=== PATIENT | male | born 1985 | race Caucasian/White ===

== ENCOUNTER 2019-04-24 06:44 | Inpatient (IN) | payer MEDICAID ==
[~2019-04-24] VITALS: Ht 177.8 cm; Wt 83.0 kg
[2019-04-24] MEDS ORDERED: methylPREDNISolone SOD SUCC 125 MG/2 ML IV ONE (07:00)
[2019-04-24] MEDS ORDERED: SODIUM CHLORIDE FLUSH 10ML SYR IVF ONE (07:00)
--- NOTE | 2019-04-24 07:04 | NUR ---
Assumed c/o pt from LISETTE Manuel. Pt to ER this morning for increasing SOB x 2 days. Hx COPD, recent ICU admission to [facility] for resp. failure. Arrives w/ RR 35, mildly diaphoretic, sinus tachycardia on monitor, 9/10 chest tightness. Pt placed on cardiac, NIBP & continuous SPO2 monitors. RA sat trial: 91%. EKG performed & shown to ER MD. ARNOL IP from EMS. RT en route for neb tx. Pt aware that he is likely IP admit.
[2019-04-24] MEDS ORDERED: ALBU90AE2 INH (07:07)
[2019-04-24] MEDS ORDERED: methylPREDNISolone SOD SUCC 125 MG/2 ML ONE (07:11)
[2019-04-24] MEDS ORDERED: ALBUTEROL/IPRATROPIUM 2.5MG/0.5MG, 3 ML ONE ×2 (07:13→09:48)
[2019-04-24] MEDS: ALBUTEROL/IPRATROPIUM 2.5MG/0.5MG, 3 ML NPPB SCH ×5 (07:16→23:30)
--- NOTE | 2019-04-24 07:16 | NUR ---
BC x2 being drawn. Mayo tx IP.
--- NOTE | 2019-04-24 07:31 | NUR ---
Pt WOB not decreased after neb tx. RR 33. BiPap intitiated by RT. Pt tolerating well.
[2019-04-24 07:47] LABS: BASOPHILS # (AUTO) 0.03 x10^3/uL (0-0.1); BASOPHILS % (AUTO) 0 % (0-1); EOSINOPHILS # (AUTO) 0.07 x10^3/uL (0-0.4); EOSINOPHILS % (AUTO) 1 % (1-7); LYMPHOCYTES # (AUTO) 1.78 x10^3/uL (1-3.4); LYMPHOCYTES % (AUTO) 12 % (22-44); MD NO; MEAN CORPUSCULAR HEMOGLOBIN 31.9 pg (27.5-34.5); MEAN CORPUSCULAR HGB CONC 33.8 g/dL (33.2-36.2); MEAN CORPUSCULAR VOLUME 94.4 fL (81-97); MEAN PLATELET VOLUME 7.6 fL (7.4-10.4); MONOCYTES # (AUTO) 0.92 x10^3/uL (0.2-0.8); MONOCYTES % (AUTO) 6 % (2-9); NEUTROPHILS # (AUTO) 12.04 x10^3/uL (1.8-6.8); NEUTROPHILS % (AUTO) 81 % (42-75); PLATELET COUNT 256 x10^3/uL (130-400); RED BLOOD COUNT 5.27 x10^6/uL (4.38-5.82); RED CELL DISTRIBUTION WIDTH 15.7 % (9.4-14.8)
--- NOTE | 2019-04-24 07:49 | NUR ---
Tolerating Bipap well, HR decreased. RR remains elevated. Falls asleep frequently. Call light within reach.
[2019-04-24 07:57] LABS: ALBUMIN 3.4 g/dL (3.4-5.0); ANION GAP 3 mmol/L (5-15); CALCIUM 8.6 mg/dL (8.5-10.1); CHLORIDE 107 mmol/L (98-107); PROTHROMBIN TIME 10.6 Seconds (9.6-11.5)
[2019-04-24] MEDS ORDERED: CEFTRIAXONE PMX 1GM/50ML 50 ML IVPB ONE (08:00)
[2019-04-24] MEDS ORDERED: AZITHROMYCIN 500 MG in SODIUM CHLORIDE 0.9% 250 ML IVPB ONE (08:00)
[2019-04-24 08:12] LABS: TROPONIN I 0.516 ng/mL (0.000-0.045)
--- NOTE | 2019-04-24 08:12 | NUR ---
Pt removed Bipap to speak with abstract clerk. Unable to replace w/out machine alarming. Placed on oxymask @ 6L to maintain SPO2. Isabel RT called & will come to reset. Critical trop called from lab. Provider informed.
[2019-04-24] MEDS ORDERED: CEFTRIAXONE PMX 1GM/50ML 50 ML ONE (08:15)
--- NOTE | 2019-04-24 08:24 | NUR ---
Back on bipap. 1 of 2 IV abx hung.
--- NOTE | 2019-04-24 08:46 | NUR ---
2nd IV abx gabe.
--- NOTE | 2019-04-24 09:00 | NUR ---
LATE ENTRY D/T PATIENT CARE: REPORT RECEIVED AT BEDSIDE FROM LISETTE MOTA. PT IS A&O, RESPS EVEN, MILDLY LABORED. PT IS ON BIPAP, PLACED BY RT. RESPIRATORY RATE RANGING BETWEEN 22-36. SPO2 MAINTAINED >95%. PT REPORTS 7/10 BILATERAL CHEST PAIN, AND DIFFUSE ABDOMINAL PAIN. MD SMITH INFORMED. AWARE OF ELEVATED TROPONIN. IV ABX INFUSING AT THIS TIME. PT IS SINUS TACH, RATE 110-120 WITH NO ECTOPY. BP STABLE. PT ABLE TO SPEAK 5-6 WORD SENTENCES WITHOUT TAKING A BREATH. PT TO HAVE CTA TO RULE OUT PE.
--- NOTE | 2019-04-24 09:05 | NUR ---
LATE ENTRY D/T PATIENT CARE: PER MD SMITH, ELEVATED TROPONIN LIKELY SECONDARY TO RESP DISTRESS, NOT CARDIAC IN ORIGIN.
--- NOTE | 2019-04-24 09:10 | NUR ---
SECOND PIV STARTED. CT CALLED TO NOTIFY PT IS READY FOR CT. RT CALLED, INSTRUCTED RN TO PUT PT ON NASAL CANNULA AT 4L/MIN FOR CT SCAN. CT STATES SCANNER WILL BE READY IN 5 MIN.
--- NOTE | 2019-04-24 09:20 | NUR ---
PT TAKEN TO CT WITH THIS RN AND TECH WITH MONITOR, OXYGEN VIA OXYMASK AT 4L/MIN, PT TOLERATING WELL WITH SPO2 98-99%. RESPIRATORY RATE REMAINS 22-36, MILDLY LABORED.
--- NOTE | 2019-04-24 09:40 | NUR ---
PT BACK FROM CT WITH RN AND TECH, NO CHANGE IN RESP STATUS. SPO2 95% ON 4L/MIN VIA OXYMASK UPON RETURN. RT CALLED TO REAPPLY BIPAP.
--- NOTE | 2019-04-24 10:00 | NUR ---
RT AT BEDSIDE, PT REATTACHED TO BIPAP. BREATHING TX IN PROGRESS VIA BIPAP. REPEAT EKG TAKEN BY EDT AND REVIEWED BY TEAGAN SMITH. AWAITING ICU BED ASSIGNMENT AT THIS TIME.
--- NOTE | 2019-04-24 10:15 | NUR ---
PT SLEEPING, RESPS EVEN, MILDLY LABORED. BIPAP IN PLACE, PT TOLERATING WITH SPO2 >95%.
[2019-04-24] MEDS ORDERED: SODIUM CHLORIDE FLUSH 10ML SYR IVF PRN (10:30)
--- NOTE | 2019-04-24 10:45 | NUR ---
SEPSIS FLOW SHEET FILLED OUT, DIAGNOSTIC FINDINGS DISCUSSED WITH LYNDA SMITH, PER MD, PT IS NOT IN SEPTIC SHOCK AND DOES NOT REQUIRE WEIGHT BASED FLUID RESUSCITATION.
--- NOTE | 2019-04-24 11:12 | NUR ---
terrazzo installer prince at bedside to evaluate pt. pt a&o, resps even and unlabored. tolerating bipap well. per terrazzo installer, bipap to remain on for a few more hours before re-evaluation and potentially transitioning to nasal cannula.
[2019-04-24] MEDS ORDERED: ENALAPRILAT 1.25 MG/ML, 2ML IVPush PRN (11:30)
[2019-04-24] MEDS ORDERED: POLYETHYLENE GLYCOL 17 GM PACKET PO PRN (11:30)
[2019-04-24] MEDS ORDERED: LABETALOL 5MG/ML, 20ML IVPush PRN (11:30)
[2019-04-24] MEDS ORDERED: ACETAMINOPHEN 325 MG TABLET PO PRN (11:30)
[2019-04-24] MEDS ORDERED: BISACODYL 10 MG SUPP PR PRN (11:30)
[2019-04-24] MEDS ORDERED: ONDANSETRON 2MG/ML, 2ML IVPush PRN (11:30)
--- NOTE | 2019-04-24 11:39 | NUR ---
ICU BED STILL UNAVAILABLE. HOUSEKEEPING PAGED TO BRING HOSPITAL BED TO REPLACE KRISTOPHERRMARIEL. REGULAR DIET TRAY ORDERED.
--- NOTE | 2019-04-24 12:08 | NUR ---
LUNCH RN: PT MOVED TO HOSPITAL BED, TOLERATED WELL. PT REQUESTING DIET TRAY. WILL DELIVER. PT ALSO WANTING TO KNOW HOW LONG BIPAP IS TO BE WORN, UPDATED. TOLD TO CALL DR. LONGO
[2019-04-24] MEDS ORDERED: methylPREDNISolone SOD SUCC 40 MG/ML IV SCH (12:30)
[2019-04-24] MEDS ORDERED: NICOTINE 21 MG/24 HR PATCH.TD24 TD ONE (12:30)
--- NOTE | 2019-04-24 12:31 | NUR ---
REPORT CALLED TO RECEIVING LISETTE CHAMPAGNE. PT TO BE TRANSPORTED TO CCU SHORTLY.
--- NOTE | 2019-04-24 12:56 | NUR ---
PT VOIDED APPROX 800ML CONCENTRATED URINE. LUNCH TRAY CONSUMED 100%. PT TOLERATING NASAL CANNULA AT 3L/MIN , SPO2 98% PRIOR TO TRANSFER. PT TRANSPORTED TO ROOM 551-2 BY THIS RN AND EDT. RT NOTIFIED OF TRANSPORT, RN INSTRUCTED TO TRANSPORT PT WITH OXYGEN VIA NC, TO RESUME BIPAP PER RT IN CCU. RT AND RECEIVING LISETTE CHAMAPGNE AT BEDSIDE UPON PT ARRIVAL TO CCU. PT A&O, RESPS EVEN AND UNLABORED, NADN AT TRANSPORT.
[2019-04-24] MEDS: ENOXAPARIN 40 MG/0.4 ML SQ SCH (13:05)
[2019-04-24] MEDS ORDERED: ALBUTEROL/IPRATROPIUM 2.5MG/0.5MG, 3 ML NPPB PRN (14:00)
[2019-04-24] MEDS: methylPREDNISolone SOD SUCC 40 MG/ML IV SCH ×2 (15:08→23:35)
[2019-04-24] MEDS: FAMOTIDINE 20 MG TABLET PO SCH (20:14)
[2019-04-25] MEDS: ALBUTEROL/IPRATROPIUM 2.5MG/0.5MG, 3 ML NPPB SCH ×5 (02:55→20:15)
[2019-04-25 04:39] LABS: BASOPHILS # (AUTO) 0.01 x10^3/uL (0-0.1); BASOPHILS % (AUTO) 0 % (0-1); EOSINOPHILS # (AUTO) 0.01 x10^3/uL (0-0.4); EOSINOPHILS % (AUTO) 0 % (1-7); LYMPHOCYTES # (AUTO) 0.67 x10^3/uL (1-3.4); LYMPHOCYTES % (AUTO) 5 % (22-44); MD NO; MEAN CORPUSCULAR HEMOGLOBIN 31.6 pg (27.5-34.5); MEAN CORPUSCULAR HGB CONC 33.6 g/dL (33.2-36.2); MEAN CORPUSCULAR VOLUME 94.2 fL (81-97); MEAN PLATELET VOLUME 8.1 fL (7.4-10.4); MONOCYTES # (AUTO) 0.33 x10^3/uL (0.2-0.8); MONOCYTES % (AUTO) 2 % (2-9); NEUTROPHILS % (AUTO) 93 % (42-75); PLATELET COUNT 204 x10^3/uL (130-400); RED BLOOD COUNT 4.77 x10^6/uL (4.38-5.82); RED CELL DISTRIBUTION WIDTH 15.3 % (9.4-14.8)
[2019-04-25 04:49] LABS: ANION GAP 5 mmol/L (5-15); CALCIUM 8.8 mg/dL (8.5-10.1); CHLORIDE 100 mmol/L (98-107)
[2019-04-25 04:51] LABS: ALANINE AMINOTRANSFERASE 48 U/L (12-78); ALKALINE PHOSPHATASE 46 U/L (45-117); BILIRUBIN,TOTAL 0.5 mg/dL (0.2-1.0); CREATININE 0.92 mg/dL (0.7-1.3); TOTAL PROTEIN 6.1 g/dL (6.4-8.2)
[2019-04-25] MEDS: methylPREDNISolone SOD SUCC 40 MG/ML IV SCH ×2 (06:10→16:42)
[2019-04-25] MEDS: SENNA/DOCUSATE TABLET PO SCH (07:34)
[2019-04-25] MEDS: FAMOTIDINE 20 MG TABLET PO SCH ×2 (07:34→20:17)
[2019-04-25] MEDS: CEFTRIAXONE PMX 1GM/50ML 50 ML IV SCH (07:53)
[2019-04-25 08:30] VITALS: BP 128/82
[2019-04-25] MEDS: AZITHROMYCIN 500 MG in SODIUM CHLORIDE 0.9% 250 ML IV SCH (08:48)
[2019-04-25] MEDS: ENOXAPARIN 40 MG/0.4 ML SQ SCH (10:27)
[2019-04-25] MEDS: NICOTINE 21 MG/24 HR PATCH.TD24 TD SCH (10:27)
[2019-04-25] MEDS ORDERED: ZOLPIDEM 10MG TABLET PO PRN (10:30)
[2019-04-25 12:23] VITALS: BP 144/84
[2019-04-25 16:45] VITALS: BP 139/86
[2019-04-25 20:18] VITALS: BP 130/71
[2019-04-25 22:56] VITALS: BP 127/80
[2019-04-26] MEDS: methylPREDNISolone SOD SUCC 40 MG/ML IV SCH ×3 (01:02→16:43)
[2019-04-26 01:20] VITALS: BP 147/75
[2019-04-26] MEDS: ALBUTEROL/IPRATROPIUM 2.5MG/0.5MG, 3 ML NPPB SCH ×7 (01:41→23:00)
[2019-04-26] MEDS: CEFTRIAXONE PMX 1GM/50ML 50 ML IV SCH (08:25)
[2019-04-26] MEDS: FAMOTIDINE 20 MG TABLET PO SCH ×2 (09:19→22:19)
[2019-04-26] MEDS: SENNA/DOCUSATE TABLET PO SCH (09:19)
[2019-04-26] MEDS: AZITHROMYCIN 500 MG in SODIUM CHLORIDE 0.9% 250 ML IV SCH (09:19)
[2019-04-26] MEDS: NICOTINE 21 MG/24 HR PATCH.TD24 TD SCH (09:19)
[2019-04-26 09:27] VITALS: BP 129/66
[2019-04-26] MEDS: ENOXAPARIN 40 MG/0.4 ML SQ SCH (16:42)
[2019-04-26 22:21] VITALS: BP 121/79
[2019-04-27] MEDS: methylPREDNISolone SOD SUCC 40 MG/ML IV SCH ×3 (00:28→16:30)
[2019-04-27] MEDS: ALBUTEROL/IPRATROPIUM 2.5MG/0.5MG, 3 ML NPPB SCH ×6 (02:35→22:32)
[2019-04-27 03:45] VITALS: BP 117/71
[2019-04-27 07:24] VITALS: BP 124/70
[2019-04-27] MEDS: CEFTRIAXONE PMX 1GM/50ML 50 ML IV SCH (08:29)
[2019-04-27] MEDS: GUAIFENESIN 200 MG TABLET PO SCH ×4 (08:30→20:53)
[2019-04-27 08:48] LABS: MEAN CORPUSCULAR HEMOGLOBIN 31.6 pg (27.5-34.5); MEAN CORPUSCULAR HGB CONC 33.2 g/dL (33.2-36.2); MEAN CORPUSCULAR VOLUME 95.3 fL (81-97); MEAN PLATELET VOLUME 8.1 fL (7.4-10.4); PLATELET COUNT 215 x10^3/uL (130-400); RED BLOOD COUNT 4.79 x10^6/uL (4.38-5.82); RED CELL DISTRIBUTION WIDTH 14.9 % (9.4-14.8)
[2019-04-27] MEDS: SENNA/DOCUSATE TABLET PO SCH (09:00)
[2019-04-27 09:05] LABS: TROPONIN I 0.136 ng/mL (0.000-0.045)
[2019-04-27] MEDS: AZITHROMYCIN 500 MG in SODIUM CHLORIDE 0.9% 250 ML IV SCH (09:31)
[2019-04-27] MEDS: NICOTINE 21 MG/24 HR PATCH.TD24 TD SCH (09:32)
[2019-04-27] MEDS: FAMOTIDINE 20 MG TABLET PO SCH ×2 (09:33→20:53)
[2019-04-27 09:41] LABS: BASOPHILS % (AUTO) 0 % (0-1); EOSINOPHILS % (AUTO) 0 % (1-7); LYMPHOCYTES # (AUTO) 0.37 x10^3/uL (1-3.4); LYMPHOCYTES % (AUTO) 3 % (22-44); MD SCAN; MONOCYTES # (AUTO) 0.34 x10^3/uL (0.2-0.8); MONOCYTES % (AUTO) 2 % (2-9); NEUTROPHILS # (AUTO) 13.79 x10^3/uL (1.8-6.8); NEUTROPHILS % (AUTO) 95 % (42-75)
[2019-04-27 14:12] VITALS: BP 138/76
[2019-04-27] MEDS: ENOXAPARIN 40 MG/0.4 ML SQ SCH (16:30)
[2019-04-27 20:50] VITALS: BP 130/80
[2019-04-28 00:30] VITALS: BP 147/71
[2019-04-28] MEDS: methylPREDNISolone SOD SUCC 40 MG/ML IV SCH (00:33)
[2019-04-28] MEDS: ALBUTEROL/IPRATROPIUM 2.5MG/0.5MG, 3 ML NPPB SCH ×6 (02:30→22:00)
[2019-04-28 05:20] LABS: ALBUMIN 3.2 g/dL (3.4-5.0); ANION GAP 4 mmol/L (5-15); CALCIUM 8.9 mg/dL (8.5-10.1); CHLORIDE 99 mmol/L (98-107)
[2019-04-28 05:24] LABS: MEAN CORPUSCULAR HEMOGLOBIN 31.8 pg (27.5-34.5); MEAN CORPUSCULAR HGB CONC 33.3 g/dL (33.2-36.2); MEAN CORPUSCULAR VOLUME 95.3 fL (81-97); MEAN PLATELET VOLUME 8.1 fL (7.4-10.4); PLATELET COUNT 201 x10^3/uL (130-400); RED BLOOD COUNT 4.93 x10^6/uL (4.38-5.82); RED CELL DISTRIBUTION WIDTH 15.1 % (9.4-14.8)
[2019-04-28 05:26] LABS: ALANINE AMINOTRANSFERASE 53 U/L (12-78); ALKALINE PHOSPHATASE 48 U/L (45-117); BILIRUBIN,TOTAL 0.5 mg/dL (0.2-1.0); CREATININE 0.95 mg/dL (0.7-1.3); TOTAL PROTEIN 6.4 g/dL (6.4-8.2); TROPONIN I 0.134 ng/mL (0.000-0.045)
[2019-04-28] MEDS: GUAIFENESIN 200 MG TABLET PO SCH ×4 (05:31→22:07)
[2019-04-28 06:00] LABS: BASOPHILS % (AUTO) 0 % (0-1); EOSINOPHILS # (AUTO) 0.01 x10^3/uL (0-0.4); EOSINOPHILS % (AUTO) 0 % (1-7); LYMPHOCYTES # (AUTO) 0.37 x10^3/uL (1-3.4); LYMPHOCYTES % (AUTO) 3 % (22-44); MD SCAN; MONOCYTES # (AUTO) 0.31 x10^3/uL (0.2-0.8); MONOCYTES % (AUTO) 2 % (2-9); NEUTROPHILS # (AUTO) 13.98 x10^3/uL (1.8-6.8); NEUTROPHILS % (AUTO) 95 % (42-75)
[2019-04-28 07:40] VITALS: BP 130/67
[2019-04-28] MEDS: SENNA/DOCUSATE TABLET PO SCH (08:11)
[2019-04-28] MEDS: NICOTINE 21 MG/24 HR PATCH.TD24 TD SCH (08:11)
[2019-04-28] MEDS: FAMOTIDINE 20 MG TABLET PO SCH ×2 (08:11→22:07)
[2019-04-28] MEDS: CEFTRIAXONE PMX 1GM/50ML 50 ML IV SCH (08:14)
[2019-04-28] MEDS: AZITHROMYCIN 500 MG in SODIUM CHLORIDE 0.9% 250 ML IV SCH (08:14)
[2019-04-28 14:00] VITALS: BP 112/62
[2019-04-28] MEDS: ENOXAPARIN 40 MG/0.4 ML SQ SCH (17:12)
[2019-04-28 19:01] VITALS: BP 122/78
[2019-04-29 01:36] VITALS: BP 125/73
[2019-04-29] MEDS: ALBUTEROL/IPRATROPIUM 2.5MG/0.5MG, 3 ML NPPB SCH ×2 (02:00→06:30)
[2019-04-29 05:11] LABS: BASOPHILS # (AUTO) 0.01 x10^3/uL (0-0.1); BASOPHILS % (AUTO) 0 % (0-1); EOSINOPHILS # (AUTO) 0.04 x10^3/uL (0-0.4); EOSINOPHILS % (AUTO) 0 % (1-7); LYMPHOCYTES # (AUTO) 1.52 x10^3/uL (1-3.4); LYMPHOCYTES % (AUTO) 16 % (22-44); MD NO; MEAN CORPUSCULAR HGB CONC 33.7 g/dL (33.2-36.2); MEAN CORPUSCULAR VOLUME 94.8 fL (81-97); MEAN PLATELET VOLUME 7.6 fL (7.4-10.4); MONOCYTES # (AUTO) 0.78 x10^3/uL (0.2-0.8); MONOCYTES % (AUTO) 8 % (2-9); NEUTROPHILS # (AUTO) 7.13 x10^3/uL (1.8-6.8); NEUTROPHILS % (AUTO) 75 % (42-75); PLATELET COUNT 189 x10^3/uL (130-400); RED BLOOD COUNT 5.08 x10^6/uL (4.38-5.82); RED CELL DISTRIBUTION WIDTH 15.6 % (9.4-14.8)
[2019-04-29] MEDS: GUAIFENESIN 200 MG TABLET PO SCH ×2 (05:53→10:38)
[2019-04-29 06:31] VITALS: BP 138/71
[2019-04-29] MEDS ORDERED: ALBUTEROL/IPRATROPIUM 2.5MG/0.5MG, 3 ML NPPB SCH (07:00)
[2019-04-29] MEDS: NICOTINE 21 MG/24 HR PATCH.TD24 TD SCH (08:12)
[2019-04-29] MEDS: SENNA/DOCUSATE TABLET PO SCH (08:13)
[2019-04-29] MEDS: FAMOTIDINE 20 MG TABLET PO SCH (08:13)
[2019-04-29] MEDS ORDERED: AMOXICILLIN/CLAV 875-125MG TABLET PO SCH (09:00)
[2019-04-29] MEDS ORDERED: DOXYCYCLINE 100MG TABLET PO SCH (09:00)
[2019-04-29] MEDS ORDERED: ALBU90AE2 INH (12:34)
[2019-04-29] MEDS ORDERED: BUDE10.2 INH (12:34)
[2019-04-29] MEDS ORDERED: GUAI200T37 PO (12:34)
[2019-04-29] MEDS ORDERED: DOXY100T PO (12:34)
[2019-04-29] MEDS ORDERED: PRED20TA PO (12:34)
[2019-04-29] MEDS ORDERED: AMOX1TAB12 PO (12:34)
[2019-04-29] MEDS ORDERED: TIOT18CA INH (12:34)
[2019-04-29 13:46] VITALS: BP 126/81
== END 2019-04-29 15:40 | disposition home or self-care (01) | DRG 177 ==
LOC: ED 07:45 → EDIP 10:14 → CCU 12:47 → 3N 04-25 21:53 → DCLOUNGE 04-29 15:31
PROVIDERS: ADMIT Internal Medicine; ATTEND Internal Medicine
PROC: 5A09357 Assistance with Respiratory Ventilation, Less than 24 Consecutive Hours, Continuous Positive Airway Pressure (ICD-10-PCS; principal; 2019-04-24)
DX: J15.6 Pneumonia due to other Gram-negative bacteria (principal); J96.21 Acute and chronic respiratory failure with hypoxia; P27.1 Bronchopulmonary dysplasia originating in the perinatal period; I24.8 Other forms of acute ischemic heart disease; F17.200 Nicotine dependence, unspecified, uncomplicated; J43.9 Emphysema, unspecified; Z59.0 Homelessness; Z82.49 Family history of ischemic heart disease and other diseases of the circulatory system; Z87.09 Personal history of other diseases of the respiratory system; Z83.3 Family history of diabetes mellitus; Z91.19 Patient's noncompliance with other medical treatment and regimen; Z88.5 Allergy status to narcotic agent
CPT/HCPCS: 36415; 96365; 99291; J7620; 71045; 71275; 80048; 80053; 82040; 83605; 83880; 84484; 85025; 85610; 85730; 87040; 87070; 87081; 87205; 93005; 93306; 94640; 94660; G0378; J0456; J0696; J1650; J2920; J2930; J7050; J7512

== ENCOUNTER 2019-04-30 07:43 | Inpatient (IN) | payer MEDICAID ==
[~2019-04-30] VITALS: Ht 177.8 cm; Wt 84.2 kg
[~2019-04-30 07:43] MED LIST: ALBU90AE2 INH; AMOX1TAB12 PO; BUDE10.2 INH; DOXY100T PO; GUAI200T37 PO; PRED20TA PO; TIOT18CA INH
--- NOTE | 2019-04-30 07:49 | NUR ---
THIS IS A 33 YO M W/ C/O SOB AND CP THAT STARTED THIS MORNING. PT WAS DC FROM THIS FACILITY YESTERDAY, WAS ADMITTED FOR PNA. DC W/ ABX AND INHALERS. PT DID NOT ELECTRICAL AND ELECTRONIC ASSEMBLER INHALERS OR START ABX COURSE. PT IS TACHYCARDIC AND TACHYPNEIC. OTHER VS WDL. PT IS CONVERSING W/ STAFF W/O DIFFICULTY. RESTING ON GURNEY W/ CALL LIGHT IN REACH. DENIES FURTHER NEEDS AT THIS TIME.
[2019-04-30] MEDS ORDERED: SODIUM CHLORIDE FLUSH 10ML SYR IVF ONE (08:00)
[2019-04-30 08:24] LABS: MEAN CORPUSCULAR HEMOGLOBIN 31.8 pg (27.5-34.5); MEAN CORPUSCULAR HGB CONC 33.9 g/dL (33.2-36.2); MEAN CORPUSCULAR VOLUME 93.8 fL (81-97); MEAN PLATELET VOLUME 7.4 fL (7.4-10.4); PLATELET COUNT 247 x10^3/uL (130-400); RED BLOOD COUNT 5.49 x10^6/uL (4.38-5.82); RED CELL DISTRIBUTION WIDTH 15.4 % (9.4-14.8)
[2019-04-30 08:30] LABS: ALANINE AMINOTRANSFERASE 60 U/L (12-78); ALBUMIN 3.2 g/dL (3.4-5.0); ANION GAP 8 mmol/L (5-15); CALCIUM 8.3 mg/dL (8.5-10.1); CHLORIDE 101 mmol/L (98-107); CREATININE 0.95 mg/dL (0.7-1.3)
[2019-04-30 08:34] LABS: ALKALINE PHOSPHATASE 53 U/L (45-117); BILIRUBIN,TOTAL 0.8 mg/dL (0.2-1.0); TOTAL PROTEIN 6.2 g/dL (6.4-8.2)
[2019-04-30 08:45] LABS: BASOPHILS # (AUTO) 0.03 x10^3/uL (0-0.1); BASOPHILS % (AUTO) 0 % (0-1); EOSINOPHILS # (AUTO) 0.05 x10^3/uL (0-0.4); EOSINOPHILS % (AUTO) 0 % (1-7); LYMPHOCYTES # (AUTO) 1.46 x10^3/uL (1-3.4); LYMPHOCYTES % (AUTO) 10 % (22-44); MD SCAN; MONOCYTES # (AUTO) 0.88 x10^3/uL (0.2-0.8); MONOCYTES % (AUTO) 6 % (2-9); NEUTROPHILS # (AUTO) 12.16 x10^3/uL (1.8-6.8); NEUTROPHILS % (AUTO) 84 % (42-75)
[2019-04-30 08:48] LABS: TROPONIN I 0.271 ng/mL (0.000-0.045)
[2019-04-30] MEDS ORDERED: ASPIRIN 81 MG TABLET CHEW PO ONE (09:00)
[2019-04-30] MEDS ORDERED: OMNIPAQUE 350 MG/ML, 100ML BOTTLE ONE (09:10)
[2019-04-30] MEDS ORDERED: ASPIRIN 81 MG TABLET CHEW ONE (09:42)
[2019-04-30] MEDS ORDERED: ACETAMINOPHEN 325 MG TABLET PO PRN (10:00)
--- NOTE | 2019-04-30 10:02 | NUR ---
ATTEMPTED TO CALL REPORT. NO ANSWER X1.
--- NOTE | 2019-04-30 10:28 | NUR ---
REPORT GIVEN TO STEVEN KNOX. PT READY FOR TRANSPORT.
[2019-04-30] MEDS ORDERED: POTASSIUM CHLORIDE 20 MEQ TAB.ER.PRT PO ONE (10:30)
[2019-04-30] MEDS: ALBUTEROL/IPRATROPIUM 2.5MG/0.5MG, 3 ML NPPB SCH ×3 (10:51→19:34)
[2019-04-30 11:30] VITALS: BP 139/83
[2019-04-30] MEDS: CEFTRIAXONE PMX 2GM/50ML 50 ML IV SCH (12:35)
[2019-04-30] MEDS: ENOXAPARIN 40 MG/0.4 ML SQ SCH (12:35)
[2019-04-30 12:57] VITALS: BP 120/77
[2019-04-30 15:07] LABS: TROPONIN I 0.272 ng/mL (0.000-0.045)
[2019-04-30] MEDS: NICOTINE 14MG/24 HR PATCH.TD24 TD SCH (17:48)
[2019-04-30 18:59] VITALS: BP 137/75
[2019-04-30] MEDS: BUDESONIDE 0.5 MG/2 ML INHA INH SCH (19:34)
[2019-04-30 20:31] LABS: TROPONIN I 0.232 ng/mL (0.000-0.045)
[2019-04-30] MEDS ORDERED: ALBUTEROL SULFATE 2.5 MG/3 ML HHN PRN (21:00)
[2019-04-30] MEDS: DOXYCYCLINE 100MG TABLET PO SCH (21:42)
[2019-05-01 00:52] VITALS: BP 117/72
[2019-05-01 05:37] LABS: BASOPHILS # (AUTO) 0.02 x10^3/uL (0-0.1); BASOPHILS % (AUTO) 0 % (0-1); EOSINOPHILS # (AUTO) 0.21 x10^3/uL (0-0.4); EOSINOPHILS % (AUTO) 2 % (1-7); LYMPHOCYTES # (AUTO) 2.04 x10^3/uL (1-3.4); LYMPHOCYTES % (AUTO) 22 % (22-44); MD NO; MEAN CORPUSCULAR HEMOGLOBIN 31.5 pg (27.5-34.5); MEAN CORPUSCULAR HGB CONC 33.7 g/dL (33.2-36.2); MEAN CORPUSCULAR VOLUME 93.4 fL (81-97); MONOCYTES # (AUTO) 0.67 x10^3/uL (0.2-0.8); MONOCYTES % (AUTO) 7 % (2-9); NEUTROPHILS # (AUTO) 6.37 x10^3/uL (1.8-6.8); NEUTROPHILS % (AUTO) 69 % (42-75); PLATELET COUNT 225 x10^3/uL (130-400); RED BLOOD COUNT 5.27 x10^6/uL (4.38-5.82); RED CELL DISTRIBUTION WIDTH 15.3 % (9.4-14.8)
[2019-05-01 05:39] LABS: CHLORIDE 103 mmol/L (98-107)
[2019-05-01 05:44] LABS: ANION GAP 3 mmol/L (5-15); CALCIUM 8.3 mg/dL (8.5-10.1); CREATININE 0.96 mg/dL (0.7-1.3)
[2019-05-01 06:57] VITALS: BP 119/73
[2019-05-01] MEDS: ALBUTEROL/IPRATROPIUM 2.5MG/0.5MG, 3 ML NPPB SCH ×2 (07:15→11:45)
[2019-05-01] MEDS: BUDESONIDE 0.5 MG/2 ML INHA INH SCH (07:15)
[2019-05-01] MEDS ORDERED: REGADENOSON 0.4 MG/5 ML SYRINGE ONE (08:18)
[2019-05-01] MEDS ORDERED: IPRATROPIUM 0.5 MG/2.5 ML INHA HHN SCH (09:00)
[2019-05-01] MEDS: DOXYCYCLINE 100MG TABLET PO SCH (10:25)
[2019-05-01] MEDS: CEFTRIAXONE PMX 2GM/50ML 50 ML IV SCH (10:25)
[2019-05-01] MEDS: ENOXAPARIN 40 MG/0.4 ML SQ SCH (10:26)
[2019-05-01 12:25] VITALS: BP 119/74
[2019-05-01] MEDS: NICOTINE 14MG/24 HR PATCH.TD24 TD SCH (14:50)
[2019-05-01] MEDS ORDERED: AMOX1TAB12 PO (14:53)
[2019-05-01] MEDS ORDERED: BUDE10.2 INH (14:53)
[2019-05-01] MEDS ORDERED: PRED20TA PO (14:53)
[2019-05-01] MEDS ORDERED: ALBU90AE2 INH (14:53)
[2019-05-01] MEDS ORDERED: TIOT18CA INH (14:53)
[2019-05-01] MEDS ORDERED: BENZ100C PO (14:53)
[2019-05-01] MEDS ORDERED: DOXY100T PO (14:53)
== END 2019-05-01 15:29 | disposition home or self-care (01) | DRG 313 ==
LOC: ED 08:46 → EDIP 09:17 → 5SO 10:40 → DCLOUNGE 05-01 15:23
PROVIDERS: ADMIT Internal Medicine Infectious Disease; ATTEND Internal Medicine Infectious Disease
DX: R07.89 Other chest pain (principal); J18.0 Bronchopneumonia, unspecified organism; E87.6 Hypokalemia; Z59.0 Homelessness; Z82.49 Family history of ischemic heart disease and other diseases of the circulatory system; Z83.3 Family history of diabetes mellitus; Z87.891 Personal history of nicotine dependence; Z88.6 Allergy status to analgesic agent; Z79.899 Other long term (current) drug therapy
CPT/HCPCS: 36415; 93017; 99285; J7626; 71045; 71275; 78452; 80048; 80053; 84484; 85025; 93005; 94640; G0378; J0696; J1650; J2785; Q9967; A9502; J7512

== ENCOUNTER 2019-05-18 05:06 | Emergency (ER) | payer MEDICAID ==
[~2019-05-18] VITALS: Ht 180.3 cm; Wt 85.0 kg
[~2019-05-18 05:06] MED LIST changes: +BENZ100C PO
--- NOTE | 2019-05-18 05:46 | NUR ---
BIBA FOR C/O SOB AFTER ARGUMENT WITH [employer]. STATES HE HAS BEEN SICK WITH PNA FOR 2 WEEKS. Addendum: 05/18/19 at 0547 by ELADIO LATE ENTRY [id number] VITALS SIGNS MONITORS APPLIED TO PT.
--- NOTE | 2019-05-18 06:07 | NUR ---
PAPER MILL SUPERINTENDENT AT BEDSIDE FOR BLOOD DRAW. PT RESTING ON GURNEY, NO ACUTE DISTRESS OBSERVED. VSS.
[2019-05-18 06:20] LABS: BASOPHILS # (AUTO) 0.02 x10^3/uL (0-0.1); BASOPHILS % (AUTO) 0 % (0-1); EOSINOPHILS # (AUTO) 0.04 x10^3/uL (0-0.4); EOSINOPHILS % (AUTO) 0 % (1-7); LYMPHOCYTES % (AUTO) 9 % (22-44); MD NO; MEAN CORPUSCULAR HEMOGLOBIN 31.9 pg (27.5-34.5); MEAN CORPUSCULAR HGB CONC 34.2 g/dL (33.2-36.2); MEAN CORPUSCULAR VOLUME 93.3 fL (81-97); MEAN PLATELET VOLUME 7.9 fL (7.4-10.4); MONOCYTES # (AUTO) 0.49 x10^3/uL (0.2-0.8); MONOCYTES % (AUTO) 5 % (2-9); NEUTROPHILS # (AUTO) 8.95 x10^3/uL (1.8-6.8); NEUTROPHILS % (AUTO) 86 % (42-75); PLATELET COUNT 238 x10^3/uL (130-400); RED BLOOD COUNT 5.07 x10^6/uL (4.38-5.82); RED CELL DISTRIBUTION WIDTH 14.4 % (9.4-14.8)
--- NOTE | 2019-05-18 06:22 | NUR ---
PT TO XRAY.
[2019-05-18 06:31] LABS: ALBUMIN 3.3 g/dL (3.4-5.0); ANION GAP 5 mmol/L (5-15); CALCIUM 8.6 mg/dL (8.5-10.1); CHLORIDE 104 mmol/L (98-107); CREATININE 1.05 mg/dL (0.7-1.3)
--- NOTE | 2019-05-18 06:37 | NUR ---
RESTING ON GURNEY, RA SAT 97%. RN ADVICED PT TO CALL RN OR STAFF IF SOB WHILE NOT ON O2. PT AGREES, NO ACUTE DISTRESS AT THIS TIME.
--- NOTE | 2019-05-18 06:49 | NUR ---
O2 SAT DOWN TO 88% RA, PLACED 2L NC BACK.
--- NOTE | 2019-05-18 07:04 | NUR ---
BEDSIDE REPORT TO TERESA KNOX.
--- NOTE | 2019-05-18 07:08 | NUR ---
BEDSIDE REPORT FROM JUWAN KNOX, PT RESTING IN [facility], ASKING FOR FOOD. OXYGEN TITRATED DOWN TO 1L PT AT 100% SPO2. CALL LIGHT WITHIN REACH.
[2019-05-18 07:50] VITALS: BP 117/69
--- NOTE | 2019-05-18 08:10 | NUR ---
pt given food per request
== END 2019-05-18 08:33 | disposition home or self-care (01) ==
LOC: ED 08:30
DX: B34.9 Viral infection, unspecified (principal); J44.9 Chronic obstructive pulmonary disease, unspecified; Z59.0 Homelessness
CPT/HCPCS: 36415; 71046; 80048; 82040; 85025; 93005; 99285

== ENCOUNTER 2019-06-09 14:24 | Inpatient (IN) | payer MEDICAID ==
[~2019-06-09] VITALS: Ht 177.8 cm; Wt 80.5 kg
[2019-06-09 15:26] LABS: BASOPHILS # (AUTO) 0.06 x10^3/uL (0-0.1); BASOPHILS % (AUTO) 1 % (0-1); EOSINOPHILS # (AUTO) 0.04 x10^3/uL (0-0.4); EOSINOPHILS % (AUTO) 0 % (1-7); LYMPHOCYTES % (AUTO) 14 % (22-44); MD NO; MEAN CORPUSCULAR HEMOGLOBIN 32.1 pg (27.5-34.5); MEAN CORPUSCULAR HGB CONC 34.6 g/dL (33.2-36.2); MEAN CORPUSCULAR VOLUME 92.7 fL (81-97); MONOCYTES # (AUTO) 0.67 x10^3/uL (0.2-0.8); MONOCYTES % (AUTO) 6 % (2-9); NEUTROPHILS # (AUTO) 8.79 x10^3/uL (1.8-6.8); NEUTROPHILS % (AUTO) 80 % (42-75); PLATELET COUNT 281 x10^3/uL (130-400); RED BLOOD COUNT 4.39 x10^6/uL (4.38-5.82); RED CELL DISTRIBUTION WIDTH 14.4 % (9.4-14.8)
[2019-06-09 15:29] LABS: ALANINE AMINOTRANSFERASE 59 U/L (12-78); ALBUMIN 3.1 g/dL (3.4-5.0); ANION GAP 4 mmol/L (5-15); CALCIUM 8.5 mg/dL (8.5-10.1); CHLORIDE 106 mmol/L (98-107); CREATININE 0.88 mg/dL (0.7-1.3)
[2019-06-09] MEDS ORDERED: ALBUTEROL/IPRATROPIUM 2.5MG/0.5MG, 3 ML ONE (15:29)
[2019-06-09 15:31] LABS: ALKALINE PHOSPHATASE 47 U/L (45-117); BILIRUBIN,TOTAL 0.9 mg/dL (0.2-1.0); TOTAL PROTEIN 6.2 g/dL (6.4-8.2)
[2019-06-09] MEDS: ALBUTEROL/IPRATROPIUM 2.5MG/0.5MG, 3 ML NPPB PRN ×2 (15:45→23:44)
--- NOTE | 2019-06-09 15:45 | NUR ---
PT MOVED TO NEG PRESSURE RM TO ADMIN NEB
[2019-06-09] MEDS ORDERED: SODIUM CHLORIDE FLUSH 10ML SYR IVF PRN (17:30)
[2019-06-09] MEDS ORDERED: ACETAMINOPHEN 325 MG TABLET PO PRN (19:00)
[2019-06-09] MEDS ORDERED: SODIUM CHLORIDE 0.9% 1,000 ML IV SCH (19:00)
[2019-06-09] MEDS ORDERED: ONDANSETRON 2MG/ML, 2ML IVPush PRN (19:00)
--- NOTE | 2019-06-09 19:01 | NUR ---
REPORT FROM LUCRECIA KNOX, ASSUMING CARE OF PT AT THIS TIME.
--- NOTE | 2019-06-09 19:17 | NUR ---
PT RESTING ON MAN NAVA.
[2019-06-09 19:24] LABS: TROPONIN I 0.485 ng/mL (0.000-0.045)
[2019-06-09] MEDS ORDERED: ALBUTEROL SULFATE 2.5 MG/3 ML NPPB PRN ×2 (19:30)
[2019-06-09] MEDS ORDERED: LEVOFLOXACIN/PMX 750MG/150ML 150 ML IV SCH (19:30)
--- NOTE | 2019-06-09 19:34 | NUR ---
IV ABX STARTED AT THIS TIME. PT EATING MEAL TRAY IN BED NO FURTHER NEEDS AT THIS TIME.
--- NOTE | 2019-06-09 20:32 | NUR ---
REPORT TO FLOOR RN PT READY FOR TRANSFER TO FLOOR
[2019-06-09 22:33] VITALS: BP 125/53
[2019-06-10] MEDS ORDERED: NICOTINE 7 MG/24 HR PATCH.TD24 TD SCH (00:30)
[2019-06-10 01:10] VITALS: BP 133/56
[2019-06-10 05:08] LABS: BASOPHILS # (AUTO) 0.06 x10^3/uL (0-0.1); BASOPHILS % (AUTO) 1 % (0-1); EOSINOPHILS # (AUTO) 0.01 x10^3/uL (0-0.4); EOSINOPHILS % (AUTO) 0 % (1-7); LYMPHOCYTES # (AUTO) 0.82 x10^3/uL (1-3.4); LYMPHOCYTES % (AUTO) 8 % (22-44); MD NO; MEAN CORPUSCULAR HEMOGLOBIN 31.5 pg (27.5-34.5); MEAN CORPUSCULAR HGB CONC 33.8 g/dL (33.2-36.2); MEAN CORPUSCULAR VOLUME 93.3 fL (81-97); MEAN PLATELET VOLUME 8.1 fL (7.4-10.4); MONOCYTES # (AUTO) 0.53 x10^3/uL (0.2-0.8); MONOCYTES % (AUTO) 5 % (2-9); NEUTROPHILS # (AUTO) 9.55 x10^3/uL (1.8-6.8); NEUTROPHILS % (AUTO) 87 % (42-75); PLATELET COUNT 259 x10^3/uL (130-400); RED BLOOD COUNT 4.18 x10^6/uL (4.38-5.82); RED CELL DISTRIBUTION WIDTH 14.7 % (9.4-14.8)
[2019-06-10 05:21] LABS: ANION GAP 6 mmol/L (5-15); CALCIUM 8.6 mg/dL (8.5-10.1); CHLORIDE 104 mmol/L (98-107); CREATININE 1.05 mg/dL (0.7-1.3)
[2019-06-10 05:25] LABS: TROPONIN I 0.378 ng/mL (0.000-0.045)
[2019-06-10 07:28] VITALS: BP 116/74
[2019-06-10] MEDS: ALBUTEROL/IPRATROPIUM 2.5MG/0.5MG, 3 ML NPPB SCH ×2 (07:57→11:00)
[2019-06-10] MEDS ORDERED: ASPIRIN 81 MG TABLET CHEW PO ONE (09:00)
[2019-06-10] MEDS: GUAIFENESIN 200 MG TABLET PO SCH ×3 (09:14→20:30)
[2019-06-10 11:00] LABS: TROPONIN I 0.358 ng/mL (0.000-0.045)
[2019-06-10 12:30] VITALS: BP 121/76
[2019-06-10] MEDS: CEFTRIAXONE PMX 1GM/50ML 50 ML IV SCH (14:39)
[2019-06-10] MEDS: ENOXAPARIN 40 MG/0.4 ML SQ SCH (14:40)
[2019-06-10] MEDS: DOXYCYCLINE 100 MG in DEXTROSE 5% 250 ML IV SCH (15:18)
[2019-06-10 15:29] LABS: RAPID INFLUENZA A Negative (Negative); RAPID INFLUENZA B Negative (Negative)
[2019-06-10 16:26] LABS: TROPONIN I 0.364 ng/mL (0.000-0.045)
[2019-06-10] MEDS: ALBUTEROL-IPRATROPIUM MDI INH INH SCH ×2 (16:35→20:30)
[2019-06-10] MEDS: ALBUTEROL HFA 90 MCG/SPRAY INH PRN (16:36)
[2019-06-10] MEDS: ATORVASTATIN 40 MG TABLET PO SCH (20:29)
[2019-06-10 20:41] LABS: TROPONIN I 0.333 ng/mL (0.000-0.045)
[2019-06-10 20:51] VITALS: BP 111/68
[2019-06-10] MEDS: NICOTINE 14MG/24 HR PATCH.TD24 TD SCH (23:07)
[2019-06-11] MEDS: DOXYCYCLINE 100 MG in DEXTROSE 5% 250 ML IV SCH (02:56)
[2019-06-11 03:02] VITALS: BP 134/76
[2019-06-11] MEDS: ALBUTEROL HFA 90 MCG/SPRAY INH PRN (03:45)
[2019-06-11 05:49] LABS: BASOPHILS # (AUTO) 0.03 x10^3/uL (0-0.1); BASOPHILS % (AUTO) 0 % (0-1); EOSINOPHILS # (AUTO) 0.03 x10^3/uL (0-0.4); EOSINOPHILS % (AUTO) 0 % (1-7); LYMPHOCYTES # (AUTO) 1.25 x10^3/uL (1-3.4); LYMPHOCYTES % (AUTO) 13 % (22-44); MD NO; MEAN CORPUSCULAR HEMOGLOBIN 31.7 pg (27.5-34.5); MEAN CORPUSCULAR HGB CONC 33.8 g/dL (33.2-36.2); MEAN CORPUSCULAR VOLUME 93.7 fL (81-97); MEAN PLATELET VOLUME 8.4 fL (7.4-10.4); MONOCYTES # (AUTO) 0.48 x10^3/uL (0.2-0.8); MONOCYTES % (AUTO) 5 % (2-9); NEUTROPHILS # (AUTO) 8.07 x10^3/uL (1.8-6.8); NEUTROPHILS % (AUTO) 82 % (42-75); PLATELET COUNT 230 x10^3/uL (130-400); RED BLOOD COUNT 4.14 x10^6/uL (4.38-5.82); RED CELL DISTRIBUTION WIDTH 14.4 % (9.4-14.8)
[2019-06-11] MEDS: GUAIFENESIN 200 MG TABLET PO SCH ×4 (05:50→19:59)
[2019-06-11] MEDS: ALBUTEROL-IPRATROPIUM MDI INH INH SCH ×4 (05:50→19:59)
[2019-06-11 05:59] LABS: ALANINE AMINOTRANSFERASE 47 U/L (12-78); ALBUMIN 2.7 g/dL (3.4-5.0); ANION GAP 7 mmol/L (5-15); CALCIUM 8.7 mg/dL (8.5-10.1); CHLORIDE 104 mmol/L (98-107)
[2019-06-11 06:01] LABS: ALKALINE PHOSPHATASE 42 U/L (45-117); BILIRUBIN,TOTAL 0.6 mg/dL (0.2-1.0); TOTAL PROTEIN 5.7 g/dL (6.4-8.2)
[2019-06-11 08:03] VITALS: BP 143/83
[2019-06-11 12:04] VITALS: BP 137/80
[2019-06-11] MEDS: CEFTRIAXONE PMX 1GM/50ML 50 ML IV SCH (13:54)
[2019-06-11] MEDS: ENOXAPARIN 40 MG/0.4 ML SQ SCH (13:54)
[2019-06-11] MEDS: ATORVASTATIN 40 MG TABLET PO SCH (19:58)
[2019-06-11] MEDS: NICOTINE 14MG/24 HR PATCH.TD24 TD SCH (20:01)
[2019-06-11 20:07] VITALS: BP 140/80
[2019-06-12 00:12] VITALS: BP 132/80
[2019-06-12] MEDS: ALBUTEROL-IPRATROPIUM MDI INH INH SCH ×4 (06:00→21:00)
[2019-06-12] MEDS: GUAIFENESIN 200 MG TABLET PO SCH ×4 (06:12→21:00)
[2019-06-12 06:56] VITALS: BP 155/83
[2019-06-12] MEDS: AZITHROMYCIN 500 MG in SODIUM CHLORIDE 0.9% 250 ML IV SCH (08:41)
[2019-06-12 12:50] VITALS: BP 120/64
[2019-06-12] MEDS: ENOXAPARIN 40 MG/0.4 ML SQ SCH (14:08)
[2019-06-12] MEDS: CEFTRIAXONE PMX 1GM/50ML 50 ML IV SCH (14:09)
[2019-06-12 18:57] VITALS: BP 150/90
[2019-06-12] MEDS: NICOTINE 14MG/24 HR PATCH.TD24 TD SCH (19:54)
[2019-06-12] MEDS: ATORVASTATIN 40 MG TABLET PO SCH (21:00)
[2019-06-13 01:11] VITALS: BP 114/73
[2019-06-13] MEDS: ALBUTEROL-IPRATROPIUM MDI INH INH SCH ×4 (05:07→21:00)
[2019-06-13] MEDS: GUAIFENESIN 200 MG TABLET PO SCH ×4 (05:07→22:05)
[2019-06-13 05:47] LABS: ANION GAP 4 mmol/L (5-15); CALCIUM 8.8 mg/dL (8.5-10.1); CHLORIDE 104 mmol/L (98-107)
[2019-06-13 05:48] LABS: CREATININE 0.95 mg/dL (0.7-1.3)
[2019-06-13 05:59] LABS: BASOPHILS # (AUTO) 0.03 x10^3/uL (0-0.1); BASOPHILS % (AUTO) 0 % (0-1); EOSINOPHILS # (AUTO) 0.04 x10^3/uL (0-0.4); EOSINOPHILS % (AUTO) 0 % (1-7); LYMPHOCYTES # (AUTO) 1.77 x10^3/uL (1-3.4); LYMPHOCYTES % (AUTO) 18 % (22-44); MD NO; MEAN CORPUSCULAR HEMOGLOBIN 31.4 pg (27.5-34.5); MEAN CORPUSCULAR HGB CONC 33.6 g/dL (33.2-36.2); MEAN CORPUSCULAR VOLUME 93.5 fL (81-97); MEAN PLATELET VOLUME 8.1 fL (7.4-10.4); MONOCYTES # (AUTO) 0.67 x10^3/uL (0.2-0.8); MONOCYTES % (AUTO) 7 % (2-9); NEUTROPHILS # (AUTO) 7.34 x10^3/uL (1.8-6.8); NEUTROPHILS % (AUTO) 75 % (42-75); PLATELET COUNT 258 x10^3/uL (130-400); RED BLOOD COUNT 4.69 x10^6/uL (4.38-5.82)
[2019-06-13 07:11] VITALS: BP 134/79
[2019-06-13] MEDS: AZITHROMYCIN 500 MG in SODIUM CHLORIDE 0.9% 250 ML IV SCH (08:03)
[2019-06-13] MEDS: NICOTINE 14MG/24 HR PATCH.TD24 TD SCH ×2 (09:35→20:34)
[2019-06-13] MEDS: CEFDINIR 300 MG CAPSULE PO SCH ×2 (11:32→23:37)
[2019-06-13] MEDS: ENOXAPARIN 40 MG/0.4 ML SQ SCH (14:00)
[2019-06-13 14:32] VITALS: BP 132/71
[2019-06-13 20:06] VITALS: BP 129/73
[2019-06-13] MEDS: ATORVASTATIN 40 MG TABLET PO SCH (20:33)
[2019-06-14 00:05] VITALS: BP 143/86
[2019-06-14 05:03] LABS: BASOPHILS % (AUTO) 0 % (0-1); EOSINOPHILS # (AUTO) 0.06 x10^3/uL (0-0.4); EOSINOPHILS % (AUTO) 1 % (1-7); LYMPHOCYTES # (AUTO) 1.71 x10^3/uL (1-3.4); LYMPHOCYTES % (AUTO) 16 % (22-44); MD NO; MEAN CORPUSCULAR HEMOGLOBIN 31.5 pg (27.5-34.5); MEAN CORPUSCULAR HGB CONC 33.8 g/dL (33.2-36.2); MEAN CORPUSCULAR VOLUME 93.3 fL (81-97); MONOCYTES # (AUTO) 0.21 x10^3/uL (0.2-0.8); MONOCYTES % (AUTO) 2 % (2-9); NEUTROPHILS # (AUTO) 8.45 x10^3/uL (1.8-6.8); NEUTROPHILS % (AUTO) 81 % (42-75); PLATELET COUNT 263 x10^3/uL (130-400); RED CELL DISTRIBUTION WIDTH 14.8 % (9.4-14.8)
[2019-06-14] MEDS: ALBUTEROL-IPRATROPIUM MDI INH INH SCH ×3 (05:05→16:00)
[2019-06-14] MEDS: GUAIFENESIN 200 MG TABLET PO SCH ×3 (05:05→17:39)
[2019-06-14 05:12] LABS: ANION GAP 2 mmol/L (5-15); CALCIUM 8.7 mg/dL (8.5-10.1); CHLORIDE 104 mmol/L (98-107)
[2019-06-14 05:14] LABS: CREATININE 0.94 mg/dL (0.7-1.3)
[2019-06-14 07:42] VITALS: BP 148/96
[2019-06-14] MEDS: NICOTINE 14MG/24 HR PATCH.TD24 TD SCH (09:00)
[2019-06-14] MEDS ORDERED: AZITHROMYCIN 500 MG TABLET PO SCH (09:00)
[2019-06-14] MEDS: NICOTINE GUM 2 MG BC PRN ×2 (10:32→14:30)
[2019-06-14] MEDS: CEFDINIR 300 MG CAPSULE PO SCH (11:05)
[2019-06-14] MEDS: ENOXAPARIN 40 MG/0.4 ML SQ SCH (14:00)
[2019-06-14 15:03] VITALS: BP 131/77
[2019-06-14] MEDS ORDERED: PRED20TA PO (16:16)
[2019-06-14] MEDS ORDERED: ENOX40SY4 SQ (16:16)
[2019-06-14] MEDS ORDERED: ACET325T26 PO (16:16)
[2019-06-14] MEDS ORDERED: NICO2GUM41 BC (16:16)
[2019-06-14] MEDS ORDERED: GUAI200T37 PO (16:16)
[2019-06-14] MEDS ORDERED: AZIT500T10 PO (16:16)
[2019-06-14] MEDS ORDERED: CEFD300C37 PO (16:16)
[2019-06-14] MEDS ORDERED: ATOR40TA78 PO (16:16)
[2019-06-14] MEDS ORDERED: ONDA4TAB7 PO (16:16)
== END 2019-06-14 17:54 | DRG 194 ==
LOC: ED 15:19 → EDIP 17:27 → 5SO 20:55 → 3WST 06-10 12:10 → 3N 06-11 22:46
PROVIDERS: ADMIT Internal Medicine Infectious Disease; ATTEND Hospitalist
DX: J15.9 Unspecified bacterial pneumonia (principal); R45.851 Suicidal ideations; Z88.6 Allergy status to analgesic agent; D72.810 Lymphocytopenia; F12.90 Cannabis use, unspecified, uncomplicated; F17.200 Nicotine dependence, unspecified, uncomplicated; F31.9 Bipolar disorder, unspecified; J43.9 Emphysema, unspecified; Z20.828 Contact with and (suspected) exposure to other viral communicable diseases; R09.02 Hypoxemia; Z59.0 Homelessness; Z83.3 Family history of diabetes mellitus; Z91.14 Patient's other noncompliance with medication regimen
CPT/HCPCS: 36415; 71045; 80048; 80053; 83880; 84145; 84484; 85025; 85379; 87040; 87070; 87205; 87400; 93005; 94640; 96374; 99285; G0378; J0456; J0696; J1650; J1956; J7060; J7030; J7050; J7512

== ENCOUNTER 2019-06-19 00:02 | Inpatient (IN) | payer MEDICAID ==
[~2019-06-19] VITALS: Ht 177.8 cm; Wt 81.8 kg
[~2019-06-19 00:02] MED LIST changes: +ACET325T26 PO; +ATOR40TA78 PO; +AZIT500T10 PO; +CEFD300C37 PO; +ENOX40SY4 SQ; +NICO2GUM41 BC; +ONDA4TAB7 PO
[2019-06-19] MEDS ORDERED: ALBUTEROL/IPRATROPIUM 2.5MG/0.5MG, 3 ML NPPB ONE (00:30)
[2019-06-19] MEDS ORDERED: SODIUM CHLORIDE 0.9% 1,000ML IVBOLUS ONE ×2 (00:30→01:30)
[2019-06-19 00:55] LABS: MEAN CORPUSCULAR HEMOGLOBIN 31.9 pg (27.5-34.5); MEAN CORPUSCULAR HGB CONC 33.8 g/dL (33.2-36.2); MEAN CORPUSCULAR VOLUME 94.5 fL (81-97); MEAN PLATELET VOLUME 7.4 fL (7.4-10.4); PLATELET COUNT 304 x10^3/uL (130-400); RED BLOOD COUNT 4.76 x10^6/uL (4.38-5.82)
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
[2019-06-19 01:04] LABS: ALBUMIN 3.4 g/dL (3.4-5.0); ANION GAP 7 mmol/L (5-15); CALCIUM 8.7 mg/dL (8.5-10.1); CHLORIDE 103 mmol/L (98-107); CREATININE 0.95 mg/dL (0.7-1.3)
[2019-06-19] MEDS ORDERED: ALBUTEROL/IPRATROPIUM 2.5MG/0.5MG, 3 ML ONE (01:07)
[2019-06-19 01:10] LABS: BASOPHILS # (AUTO) 0.03 x10^3/uL (0-0.1); BASOPHILS % (AUTO) 0 % (0-1); EOSINOPHILS % (AUTO) 0 % (1-7); LYMPHOCYTES # (AUTO) 1.23 x10^3/uL (1-3.4); LYMPHOCYTES % (AUTO) 9 % (22-44); MD SCAN; MONOCYTES # (AUTO) 0.09 x10^3/uL (0.2-0.8); MONOCYTES % (AUTO) 1 % (2-9); NEUTROPHILS # (AUTO) 12.19 x10^3/uL (1.8-6.8); NEUTROPHILS % (AUTO) 90 % (42-75)
--- NOTE | 2019-06-19 01:20 | NUR ---
PT STARTED BREATHING TX.
[2019-06-19] MEDS ORDERED: CEFTRIAXONE PMX 1GM/50ML 50 ML IV ONE (01:30)
[2019-06-19] MEDS ORDERED: AZITHROMYCIN 500 MG in SODIUM CHLORIDE 0.9% 250 ML IV ONE (01:30)
--- NOTE | 2019-06-19 01:30 | NUR ---
CALL PLACED TO [employer] AT [phone]. INFORMED PT IS ON RESP SIDE. REPORTS THEY WILL BE SENDING SOMEONE OUT TO COME TALK TO HIM.
[2019-06-19] MEDS ORDERED: CEFTRIAXONE PMX 1GM/50ML 50 ML ONE (01:35)
--- NOTE | 2019-06-19 01:50 | NUR ---
PT RESTING ON GURNEY W/ CALL LIGHT IN REACH. WOB IMPROVED AFTER BREATHING TX. PT UPDATED ON POC FOR ADMIT.
--- NOTE | 2019-06-19 02:07 | NUR ---
[facility]
--- NOTE | 2019-06-19 02:20 | NUR ---
REPORT FROM ADRIA KNOX ASSUMING CARE OF PT AT THIS TIME
[2019-06-19] MEDS ORDERED: hydrALAzine 20 MG/ML, 1ML IVPush PRN (02:30)
[2019-06-19] MEDS ORDERED: ACETAMINOPHEN 325 MG TABLET PO PRN (02:30)
[2019-06-19] MEDS ORDERED: ALBUTEROL HFA 90 MCG/SPRAY INH PRN ×2 (02:30→04:00)
[2019-06-19] MEDS ORDERED: ONDANSETRON 2MG/ML, 2ML IVPush PRN (02:30)
--- NOTE | 2019-06-19 02:32 | NUR ---
ABX STARTED AT THIS TIME
[2019-06-19] MEDS ORDERED: ONDANSETRON 2MG/ML, 2ML ONE (02:33)
--- NOTE | 2019-06-19 02:51 | NUR ---
REPORT TO WOLFGANG KNOX ALL QUESTIONS ADDRESSED AFTER PT AND MD FINISHED WITH [employer] REPORT PT TO GO TO 310
--- NOTE | 2019-06-19 03:07 | NUR ---
PER ELIZABETH THACKER RN/ TO CALL [facility] [phone] WITH COVID RESULTS JULIET.
[2019-06-19 03:15] VITALS: BP 121/79
--- NOTE | 2019-06-19 03:23 | NUR ---
THIS TECH TRANSPORTED PT
[2019-06-19] MEDS ORDERED: NICOTINE 14MG/24 HR PATCH.TD24 ONE (05:17)
[2019-06-19] MEDS: CEFDINIR 300 MG CAPSULE PO SCH ×2 (05:26→16:36)
[2019-06-19 07:25] VITALS: BP 129/86
[2019-06-19] MEDS ORDERED: NICOTINE 14MG/24 HR PATCH.TD24 TD SCH (09:00)
[2019-06-19] MEDS: ALBUTEROL-IPRATROPIUM MDI INH INH SCH ×3 (11:01→20:51)
[2019-06-19] MEDS: FLUTICASONE FUROATE 200MCG/INH INH SCH (11:01)
[2019-06-19] MEDS: NICOTINE GUM 2 MG BC PRN ×3 (11:02→17:27)
[2019-06-19 12:15] VITALS: BP 140/87
[2019-06-19] MEDS: ENOXAPARIN 40 MG/0.4 ML SQ SCH (16:35)
[2019-06-19 18:18] VITALS: BP 140/78
[2019-06-19] MEDS: NICOTINE GUM 4 MG BC PRN (21:14)
[2019-06-20 02:00] VITALS: BP 148/82
[2019-06-20] MEDS: NICOTINE GUM 4 MG BC PRN ×4 (03:27→20:26)
[2019-06-20] MEDS: CEFDINIR 300 MG CAPSULE PO SCH ×2 (03:27→16:49)
[2019-06-20 05:40] LABS: ALBUMIN 3.2 g/dL (3.4-5.0); ANION GAP 5 mmol/L (5-15); BASOPHILS # (AUTO) 0.06 x10^3/uL (0-0.1); BASOPHILS % (AUTO) 1 % (0-1); CALCIUM 8.9 mg/dL (8.5-10.1); CHLORIDE 98 mmol/L (98-107); EOSINOPHILS # (AUTO) 0.03 x10^3/uL (0-0.4); EOSINOPHILS % (AUTO) 0 % (1-7); LYMPHOCYTES # (AUTO) 1.64 x10^3/uL (1-3.4); LYMPHOCYTES % (AUTO) 16 % (22-44); MD NO; MEAN CORPUSCULAR HEMOGLOBIN 31.5 pg (27.5-34.5); MEAN CORPUSCULAR HGB CONC 33.3 g/dL (33.2-36.2); MEAN CORPUSCULAR VOLUME 94.5 fL (81-97); MEAN PLATELET VOLUME 7.9 fL (7.4-10.4); MONOCYTES # (AUTO) 0.42 x10^3/uL (0.2-0.8); MONOCYTES % (AUTO) 4 % (2-9); NEUTROPHILS # (AUTO) 8.47 x10^3/uL (1.8-6.8); NEUTROPHILS % (AUTO) 80 % (42-75); PLATELET COUNT 234 x10^3/uL (130-400); RED CELL DISTRIBUTION WIDTH 14.5 % (9.4-14.8)
[2019-06-20 05:47] LABS: ALANINE AMINOTRANSFERASE 135 U/L (12-78); ALKALINE PHOSPHATASE 53 U/L (45-117); BILIRUBIN,TOTAL 1.3 mg/dL (0.2-1.0); C-REACTIVE PROTEIN, QUANT 0.06 mg/dL (0.02-0.49); TOTAL PROTEIN 6.3 g/dL (6.4-8.2)
[2019-06-20 06:30] VITALS: BP 148/92
[2019-06-20] MEDS: ALBUTEROL-IPRATROPIUM MDI INH INH SCH ×3 (08:11→22:00)
[2019-06-20] MEDS: FLUTICASONE FUROATE 200MCG/INH INH SCH (08:11)
[2019-06-20] MEDS: NICOTINE 21 MG/24 HR PATCH.TD24 TD SCH (11:38)
[2019-06-20 13:22] VITALS: BP 133/74
[2019-06-20] MEDS: ENOXAPARIN 40 MG/0.4 ML SQ SCH (13:48)
[2019-06-20 20:35] VITALS: BP 127/80
[2019-06-21 01:00] VITALS: BP 151/97
[2019-06-21] MEDS: NICOTINE GUM 4 MG BC PRN ×5 (01:03→19:56)
[2019-06-21] MEDS: CEFDINIR 300 MG CAPSULE PO SCH ×2 (04:44→16:18)
[2019-06-21 08:07] VITALS: BP 155/89
[2019-06-21] MEDS: ALBUTEROL-IPRATROPIUM MDI INH INH SCH ×3 (08:10→20:39)
[2019-06-21] MEDS: FLUTICASONE FUROATE 200MCG/INH INH SCH (08:10)
[2019-06-21] MEDS: NICOTINE 21 MG/24 HR PATCH.TD24 TD SCH ×2 (10:44→21:05)
[2019-06-21] MEDS: ENOXAPARIN 40 MG/0.4 ML SQ SCH (14:10)
[2019-06-21 14:13] VITALS: BP 146/92
[2019-06-21 20:19] VITALS: BP 114/75
[2019-06-22] MEDS: NICOTINE GUM 4 MG BC PRN ×4 (01:10→15:53)
[2019-06-22 02:36] VITALS: BP 120/70
[2019-06-22] MEDS: CEFDINIR 300 MG CAPSULE PO SCH (05:27)
[2019-06-22 06:59] VITALS: BP 164/88
[2019-06-22] MEDS: FLUTICASONE FUROATE 200MCG/INH INH SCH (09:35)
[2019-06-22] MEDS: ALBUTEROL-IPRATROPIUM MDI INH INH SCH ×2 (09:35→17:29)
[2019-06-22] MEDS: NICOTINE 21 MG/24 HR PATCH.TD24 TD SCH (11:27)
[2019-06-22 13:52] VITALS: BP 136/80
[2019-06-22] MEDS ORDERED: PRED10TA PO (14:19)
[2019-06-22] MEDS ORDERED: QUET100T4 PO (14:20)
[2019-06-22] MEDS ORDERED: ALBUTEROL/IPRATROPIUM 2.5MG/0.5MG, 3 ML NPPB PRN (15:30)
[2019-06-22] MEDS: ENOXAPARIN 40 MG/0.4 ML SQ SCH (16:00)
[2019-06-22] MEDS ORDERED: CEFDINIR 300 MG CAPSULE PO SCH (17:30)
== END 2019-06-22 18:14 | disposition home or self-care (01) | DRG 871 ==
LOC: ED 00:23 → EDIP 01:56 → 3WST 03:32 → 3N 06-21 15:40
PROVIDERS: ADMIT Internal Medicine; ATTEND Hospitalist
DX: A41.9 Sepsis, unspecified organism (principal); J96.01 Acute respiratory failure with hypoxia; J44.1 Chronic obstructive pulmonary disease with (acute) exacerbation; R45.851 Suicidal ideations; T74.21XA Adult sexual abuse, confirmed, initial encounter; E11.9 Type 2 diabetes mellitus without complications; F12.90 Cannabis use, unspecified, uncomplicated; F17.200 Nicotine dependence, unspecified, uncomplicated; F25.9 Schizoaffective disorder, unspecified; F31.9 Bipolar disorder, unspecified; F44.81 Dissociative identity disorder; I11.0 Hypertensive heart disease with heart failure; Z59.0 Homelessness; Z83.3 Family history of diabetes mellitus; Z87.01 Personal history of pneumonia (recurrent); Z90.2 Acquired absence of lung [part of]; Z82.49 Family history of ischemic heart disease and other diseases of the circulatory system; Z20.828 Contact with and (suspected) exposure to other viral communicable diseases
CPT/HCPCS: 36415; 71045; 80048; 80053; 82040; 82728; 83605; 83615; 84145; 85025; 85379; 86140; 87040; 87491; 87591; 87806; 93005; 96365; 96375; G0378; J0456; J0696; J1650; J2405; G0475; J7030; J7050; J7512; Q0177; U0001

== ENCOUNTER 2019-07-28 23:22 | Emergency (ER) | payer MEDICAID ==
[~2019-07-28] VITALS: Ht 177.8 cm; Wt 85.8 kg
[~2019-07-28 23:22] MED LIST changes: +PRED10TA PO; +QUET100T4 PO
--- NOTE | 2019-07-28 23:30 | NUR ---
PT IN BATHROOM WHEN CALLED FOR TRIAGE
[2019-07-28] MEDS ORDERED: ALBUTEROL/IPRATROPIUM 2.5MG/0.5MG, 3 ML ONE (23:54)
[2019-07-28] MEDS ORDERED: DEXAMETHASONE 4 MG TABLET ONE (23:58)
[2019-07-29] MEDS ORDERED: ALBUTEROL/IPRATROPIUM 2.5MG/0.5MG, 3 ML NPPB ONE
[2019-07-29] MEDS ORDERED: DEXAMETHASONE 4 MG TABLET PO ONE
--- NOTE | 2019-07-29 00:07 | NUR ---
PT TO ED WITH C/O SUICIDAL IDEATIONS. REPORTS NO PLAN. REPORTS HOPELESSNESS OVER NOT HAVING A JOB. REPORTS WALKING 40 MILES TODAY IN SEARCH OF A JOB. REPORTS FEELING MANIC. REPORTS HX OF SUICIDAL ATTEMPTS. REPORTS OVERDOSE AND CUTTING. REPORTS COMPLIANT WITH MEDICATIONS.REPORTS INVEGA INJECTIONS AND DEPAKOTE. REPORTS HE WANTS HELP AND IS COOPERATIVE WITH STAFF. TACHYPNEIC AND SKIN APPEARS SUN BURNT. HX OF COPD.
[2019-07-29 00:29] LABS: BASOPHILS # (AUTO) 0.02 x10^3/uL (0-0.1); BASOPHILS % (AUTO) 0 % (0-1); EOSINOPHILS # (AUTO) 0.05 x10^3/uL (0-0.4); EOSINOPHILS % (AUTO) 1 % (1-7); LYMPHOCYTES # (AUTO) 1.49 x10^3/uL (1-3.4); LYMPHOCYTES % (AUTO) 18 % (22-44); MD NO; MEAN CORPUSCULAR HGB CONC 33.7 g/dL (33.2-36.2); MEAN CORPUSCULAR VOLUME 91.9 fL (81-97); MEAN PLATELET VOLUME 7.9 fL (7.4-10.4); MONOCYTES # (AUTO) 0.69 x10^3/uL (0.2-0.8); MONOCYTES % (AUTO) 8 % (2-9); NEUTROPHILS # (AUTO) 6.12 x10^3/uL (1.8-6.8); NEUTROPHILS % (AUTO) 73 % (42-75); PLATELET COUNT 237 x10^3/uL (130-400); RED BLOOD COUNT 4.79 x10^6/uL (4.38-5.82); RED CELL DISTRIBUTION WIDTH 14.6 % (9.4-14.8)
--- NOTE | 2019-07-29 00:32 | NUR ---
PT ATTEMPTED TO URINATE AND NOT ABLE TO AT THIS TIME.
--- NOTE | 2019-07-29 00:33 | NUR ---
PT GIVEN MEAL TRAY AND WATER.
[2019-07-29 00:40] LABS: ALANINE AMINOTRANSFERASE 27 U/L (12-78); ALBUMIN 3.5 g/dL (3.4-5.0); ANION GAP 6 mmol/L (5-15); CALCIUM 8.2 mg/dL (8.5-10.1); CHLORIDE 101 mmol/L (98-107); CREATININE 1.15 mg/dL (0.7-1.3); SALICYLATE LEVEL < 1.7 mg/dL (2.8-20.0)
[2019-07-29 00:42] LABS: ALKALINE PHOSPHATASE 56 U/L (45-117); BILIRUBIN,TOTAL 1.3 mg/dL (0.2-1.0); TOTAL PROTEIN 6.3 g/dL (6.4-8.2)
[2019-07-29] MEDS ORDERED: NICOTINE 7 MG/24 HR PATCH.TD24 TD STA (01:11)
[2019-07-29] MEDS ORDERED: NICOTINE 7 MG/24 HR PATCH.TD24 ONE (01:18)
--- NOTE | 2019-07-29 01:29 | NUR ---
Assist RN: still unable to give urine sample. more water provided. nicotine patch given per patient's request. aware.
[2019-07-29] MEDS ORDERED: NICOTINE 7 MG/24 HR PATCH.TD24 TD ONE (01:30)
--- NOTE | 2019-07-29 02:09 | NUR ---
Task RN: Patient desat while sleeping; applied O2. Advised patient to continue to drink water in order for him to provide urine.
--- NOTE | 2019-07-29 02:25 | NUR ---
Urine sample obtained and sent to lab.
[2019-07-29 02:52] LABS: AMPHETAMINE SCREEN, URINE Negative (Negative); BARBITURATE SCREEN, URINE Negative (Negative); BENZODIAZEPINE SCREEN, URINE Negative (Negative); CANNABINOID SCREEN, URINE Negative (Negative); COCAINE SCREEN, URINE Negative (Negative); METHADONE SCREEN, URINE Negative (Negative); OPIATE SCREEN, URINE Negative (Negative)
--- NOTE | 2019-07-29 02:59 | NUR ---
TASK RN: PT RESTING ON BED, NADN NO NEEDS AT THIS TIME
--- NOTE | 2019-07-29 03:26 | NUR ---
TELE PSYCH PAGED
--- NOTE | 2019-07-29 03:42 | NUR ---
PT RESTING. CALM AND COOPERATIVE WITH STAFF. VSS. AWAITING TELEPSYCH CONSULT.
--- NOTE | 2019-07-29 05:12 | NUR ---
PT TO AND FROM RESTROOM WITH STEADY GAIT. RESTING IN GURNEY WITH CALL LIGHT IN REACH. DENIES CURRENT CONCERNS AT THIS TIME. AWAITING TELEPSYCH CONSULT.
--- NOTE | 2019-07-29 06:17 | NUR ---
PT TO BE ADMITTED PER PSYCH. PT AWARE. GIVEN SNACKS. CALM AND COOPERATIVE WITH STAFF. REMAINS IN SUICIDE PRECAUTIONS.
[2019-07-29] MEDS ORDERED: [UNRECOGNIZED DRUG - OTHER] (06:19)
[2019-07-29] MEDS ORDERED: DEPAKOTE (06:20)
--- NOTE | 2019-07-29 06:21 | NUR ---
CONTACTED [facility]. REFUSED PT DUE TO INSURANCE
--- NOTE | 2019-07-29 06:32 | NUR ---
PT PACKET FAXED TO [facility], [facility], [facility].
--- NOTE | 2019-07-29 06:54 | NUR ---
REPORT TO ADRAI KNOX
--- NOTE | 2019-07-29 06:56 | NUR ---
REPORT RECEIVED FROM DEVORA KNOX. PT IS RESTING ON MAN, RESP EVEN AND UNLABORED, ELIJAH.
--- NOTE | 2019-07-29 07:14 | NUR ---
REPORT GIVEN TO JENI FROM [facility]. WILL CALL BACK IF THEY ARE ABLE TO TAKE PT.
[2019-07-29 07:15] VITALS: BP 136/56
--- NOTE | 2019-07-29 08:22 | NUR ---
PT RESTING ON GURNEY, RESP EVEN AND UNLABORED, NADN. BREAKFAST TRAY DELIVERED.
--- NOTE | 2019-07-29 09:15 | NUR ---
THROUGHPUT: INFORMATION GIVEN TO VITO
== END 2019-07-29 09:31 ==
LOC: ED 07-29 00:14
DX: J44.1 Chronic obstructive pulmonary disease with (acute) exacerbation (principal); R45.851 Suicidal ideations; R94.31 Abnormal electrocardiogram [ECG] [EKG]; F17.200 Nicotine dependence, unspecified, uncomplicated; Z90.2 Acquired absence of lung [part of]
CPT/HCPCS: 36415; 71045; 80053; 80307; 85025; 93005; 99285

== ENCOUNTER 2019-08-21 13:53 | Inpatient (IN) | payer MEDICAID ==
[~2019-08-21] VITALS: Ht 177.8 cm; Wt 91.0 kg
[~2019-08-21 13:53] MED LIST changes: +DEPAKOTE; +[UNRECOGNIZED DRUG - OTHER]
--- NOTE | 2019-08-21 14:06 | NUR ---
BROUGHT IN BY [facility] FROM HOME WITH CHIEF COMPLAINT OF WORSENING SOB FOR 3 DAYS, TODAY DEVELOPED N/V. PER REPORT FROM EMS HX OF ASTHMA, COPD BUT HASNT HAD INHALERS. PTS EMS ADMINISTERED BREATHING TREATMENT X2, 125 MG SOLUMEDROL, 2GM MAG. PT IS ALERT UPON ARRIVAL BUT INCREASED WORK OF BREATHING.
[2019-08-21] MEDS ORDERED: ALBUTEROL/IPRATROPIUM 2.5MG/0.5MG, 3 ML ONE (14:14)
[2019-08-21] MEDS ORDERED: SODIUM CHLORIDE 0.9%, 500ML IVBOLUS ONE ×2 (14:30)
[2019-08-21] MEDS ORDERED: ALBUTEROL SULFATE 2.5 MG/3 ML NPPB ONE (14:30)
[2019-08-21] MEDS ORDERED: MORPHINE SULFATE 4 MG/ML, 1ML IVPush PRN (14:30)
[2019-08-21] MEDS ORDERED: ALBUTEROL/IPRATROPIUM 2.5MG/0.5MG, 3 ML NEB ONE (14:30)
[2019-08-21 14:36] LABS: BASOPHILS # (AUTO) 0.05 x10^3/uL (0-0.1); BASOPHILS % (AUTO) 1 % (0-1); EOSINOPHILS # (AUTO) 0.03 x10^3/uL (0-0.4); EOSINOPHILS % (AUTO) 0 % (1-7); LYMPHOCYTES # (AUTO) 1.13 x10^3/uL (1-3.4); LYMPHOCYTES % (AUTO) 11 % (22-44); MD NO; MEAN CORPUSCULAR HGB CONC 33.6 g/dL (33.2-36.2); MEAN CORPUSCULAR VOLUME 92.4 fL (81-97); MONOCYTES # (AUTO) 0.44 x10^3/uL (0.2-0.8); MONOCYTES % (AUTO) 4 % (2-9); NEUTROPHILS # (AUTO) 8.43 x10^3/uL (1.8-6.8); NEUTROPHILS % (AUTO) 84 % (42-75); PLATELET COUNT 243 x10^3/uL (130-400); RED CELL DISTRIBUTION WIDTH 14.4 % (9.4-14.8)
[2019-08-21 14:48] LABS: ANION GAP 8 mmol/L (5-15); C-REACTIVE PROTEIN, QUANT 0.59 mg/dL (0.02-0.49); CALCIUM 8.4 mg/dL (8.5-10.1); CHLORIDE 105 mmol/L (98-107); CREATININE 1.08 mg/dL (0.7-1.3)
--- NOTE | 2019-08-21 14:58 | NUR ---
TASK RN: PT DOZING INTERMITTENTLY, AROUSES TO NAME. SHAKES HEAD "YES" WHEN ASKED IF DOING BETTER. ST PER MONITOR.
[2019-08-21] MEDS ORDERED: AZITHROMYCIN 500 MG in SODIUM CHLORIDE 0.9% 250 ML IV ONE (15:30)
[2019-08-21 15:38] LABS: ALBUMIN 3.2 g/dL (3.4-5.0)
--- NOTE | 2019-08-21 15:40 | NUR ---
REPORT TO ANDREW KNOX
[2019-08-21 15:42] LABS: D-DIMER 0.3 ug/mlFEU (0.00-0.52); INTERNATIONAL NORMALIZED RATIO 1.07 (0.93-1.1); PROTHROMBIN TIME 11.3 Seconds (9.6-11.5)
--- NOTE | 2019-08-21 15:43 | NUR ---
[facility] AT BEDSIDE..
[2019-08-21 15:58] LABS: BILIRUBIN, DIRECT 0.1 mg/dL (0.1-0.2); BILIRUBIN,INDIRECT 0.5 mg/dL (0.0-2.0); BILIRUBIN,TOTAL 0.6 mg/dL (0.2-1.0); TOTAL PROTEIN 6.5 g/dL (6.4-8.2)
[2019-08-21] MEDS ORDERED: TRAZODONE 50MG TABLET PO PRN (16:00)
[2019-08-21] MEDS: ENOXAPARIN 40 MG/0.4 ML SQ SCH (16:00)
[2019-08-21] MEDS ORDERED: GUAIFENESIN/DM 200-20MG, 10ML UDC PO PRN (16:00)
[2019-08-21] MEDS ORDERED: ONDANSETRON 2MG/ML, 2ML IVPush PRN (16:00)
[2019-08-21] MEDS ORDERED: ACETAMINOPHEN 325 MG TABLET PO PRN (16:00)
[2019-08-21] MEDS: NICOTINE 14MG/24 HR PATCH.TD24 TD SCH (16:00)
[2019-08-21] MEDS: methylPREDNISolone SOD SUCC 40 MG/ML IVPush SCH ×2 (16:00→21:55)
[2019-08-21] MEDS ORDERED: NICOTINE 14MG/24 HR PATCH.TD24 ONE (16:03)
[2019-08-21] MEDS ORDERED: methylPREDNISolone SOD SUCC 40 MG/ML ONE (16:03)
[2019-08-21] MEDS ORDERED: ENOXAPARIN 40 MG/0.4 ML ONE (16:03)
[2019-08-21] MEDS ORDERED: POTASSIUM PHOSPHATE 44 MEQ in SODIUM CHLORIDE 0.9% 500 ML IV ONE (17:00)
--- NOTE | 2019-08-21 17:26 | NUR ---
REPORT TO LILY KNOX
--- NOTE | 2019-08-21 18:52 | NUR ---
THIS TECH (LAURENANAYELI) AND [facility] TRANSPORTED PT TO ICU.
[2019-08-21] MEDS ORDERED: ALBUTEROL/IPRATROPIUM 2.5MG/0.5MG, 3 ML NPPB SCH (20:00)
[2019-08-21] MEDS: ALBUTEROL-IPRATROPIUM MDI INH INH SCH (21:00)
[2019-08-21] MEDS: RISPERIDONE 0.5 MG TABLET PO SCH (21:54)
[2019-08-21] MEDS: INSULIN LISPRO 100 UNITS/ML, PEN SQ-INSULIN SCH (22:05)
[2019-08-22] MEDS: methylPREDNISolone SOD SUCC 40 MG/ML IVPush SCH ×4 (04:38→21:51)
[2019-08-22 04:41] VITALS: BP 99/54
[2019-08-22 05:05] LABS: ANION GAP 3 mmol/L (5-15); CHLORIDE 105 mmol/L (98-107); CREATININE 0.98 mg/dL (0.7-1.3)
[2019-08-22 05:08] LABS: BASOPHILS # (AUTO) 0.01 x10^3/uL (0-0.1); BASOPHILS % (AUTO) 0 % (0-1); EOSINOPHILS % (AUTO) 0 % (1-7); LYMPHOCYTES # (AUTO) 0.48 x10^3/uL (1-3.4); LYMPHOCYTES % (AUTO) 5 % (22-44); MD NO; MEAN CORPUSCULAR HEMOGLOBIN 30.9 pg (27.5-34.5); MEAN CORPUSCULAR HGB CONC 32.9 g/dL (33.2-36.2); MEAN CORPUSCULAR VOLUME 93.9 fL (81-97); MEAN PLATELET VOLUME 8.4 fL (7.4-10.4); MONOCYTES # (AUTO) 0.15 x10^3/uL (0.2-0.8); MONOCYTES % (AUTO) 2 % (2-9); NEUTROPHILS # (AUTO) 9.46 x10^3/uL (1.8-6.8); NEUTROPHILS % (AUTO) 94 % (42-75); PLATELET COUNT 249 x10^3/uL (130-400); RED BLOOD COUNT 4.79 x10^6/uL (4.38-5.82); RED CELL DISTRIBUTION WIDTH 14.3 % (9.4-14.8)
[2019-08-22] MEDS: ALBUTEROL-IPRATROPIUM MDI INH INH SCH ×4 (06:00→21:00)
[2019-08-22] MEDS: INSULIN LISPRO 100 UNITS/ML, PEN SQ-INSULIN SCH ×4 (06:22→21:00)
[2019-08-22] MEDS ORDERED: PANTOPRAZOLE 40MG TABLET PO SCH (07:30)
[2019-08-22] MEDS: RISPERIDONE 0.5 MG TABLET PO SCH ×2 (08:01→21:51)
[2019-08-22] MEDS: DIVALPROEX 250 MG TAB.ER.24H PO SCH (08:01)
[2019-08-22] MEDS ORDERED: AZITHROMYCIN 500 MG in SODIUM CHLORIDE 0.9% 250 ML IV SCH (09:00)
[2019-08-22] MEDS: NICOTINE 14MG/24 HR PATCH.TD24 TD SCH (10:46)
[2019-08-22 10:56] VITALS: BP 113/75
[2019-08-22] MEDS: ENOXAPARIN 40 MG/0.4 ML SQ SCH (16:25)
[2019-08-22] MEDS: NICOTINE GUM 2 MG BC PRN ×2 (17:24→20:29)
[2019-08-22 20:27] VITALS: BP 124/78
[2019-08-23 00:30] VITALS: BP 134/84
[2019-08-23] MEDS: NICOTINE GUM 2 MG BC PRN ×8 (00:55→22:26)
[2019-08-23] MEDS: methylPREDNISolone SOD SUCC 40 MG/ML IVPush SCH (03:35)
[2019-08-23] MEDS: ALBUTEROL-IPRATROPIUM MDI INH INH SCH (06:00)
[2019-08-23 06:41] VITALS: BP 146/76
[2019-08-23] MEDS: INSULIN LISPRO 100 UNITS/ML, PEN SQ-INSULIN SCH ×4 (07:00→20:08)
[2019-08-23] MEDS: LACTOBACILLUS CHEW TABLET PO SCH ×3 (07:57→20:07)
[2019-08-23] MEDS: DIVALPROEX 250 MG TAB.ER.24H PO SCH (07:58)
[2019-08-23] MEDS: CARVEDILOL 3.125 MG TABLET PO SCH ×2 (07:58→17:27)
[2019-08-23] MEDS: RISPERIDONE 0.5 MG TABLET PO SCH ×2 (07:58→20:07)
[2019-08-23] MEDS ORDERED: SODIUM CHLORIDE 0.9% 1,000 ML IV SCH (11:00)
[2019-08-23 11:29] VITALS: BP 142/81
[2019-08-23] MEDS ORDERED: ALBUTEROL/IPRATROPIUM 2.5MG/0.5MG, 3 ML NPPB SCH (15:00)
[2019-08-23 17:24] VITALS: BP 136/86
[2019-08-23] MEDS: ENOXAPARIN 40 MG/0.4 ML SQ SCH (17:27)
[2019-08-23 18:42] VITALS: BP 132/74
[2019-08-23] MEDS: ALBUTEROL SULFATE 2.5 MG/3 ML NPPB SCH (19:29)
[2019-08-24] MEDS: NICOTINE GUM 2 MG BC PRN ×3 (01:12→06:36)
[2019-08-24] MEDS ORDERED: RISP2TAB3 PO (01:16)
[2019-08-24] MEDS ORDERED: DIVA500T17 PO (01:16)
[2019-08-24 02:00] VITALS: BP 123/66
[2019-08-24] MEDS: CARVEDILOL 3.125 MG TABLET PO SCH ×2 (05:35→17:01)
[2019-08-24 06:53] VITALS: BP 162/81
[2019-08-24] MEDS: ALBUTEROL SULFATE 2.5 MG/3 ML NPPB SCH ×4 (06:57→20:32)
[2019-08-24] MEDS: INSULIN LISPRO 100 UNITS/ML, PEN SQ-INSULIN SCH ×3 (07:00→15:53)
[2019-08-24] MEDS: DIVALPROEX 250 MG TAB.ER.24H PO SCH (08:20)
[2019-08-24] MEDS: RISPERIDONE 0.5 MG TABLET PO SCH (08:21)
[2019-08-24] MEDS: LACTOBACILLUS CHEW TABLET PO SCH ×2 (08:21→17:01)
[2019-08-24] MEDS: NICOTINE GUM 4 MG BC PRN ×4 (11:01→19:40)
[2019-08-24 13:41] VITALS: BP 144/69
[2019-08-24] MEDS: ENOXAPARIN 40 MG/0.4 ML SQ SCH (17:01)
[2019-08-24 19:37] VITALS: BP 154/66
[2019-08-24] MEDS ORDERED: RISPERIDONE 2 MG TABLET PO SCH (21:00)
[2019-08-24] MEDS ORDERED: DIVALPROEX 500 MG TAB.ER.24H PO SCH (21:00)
== END 2019-08-24 21:00 | disposition left against medical advice (07) | DRG 189 ==
LOC: ED 14:03 → EDIP 15:11 → ICU 18:18 → 4NW 08-22 10:55 → 4WST 08-23 11:01
PROVIDERS: ADMIT Internal Medicine; ATTEND Hospitalist
PROC: 5A09357 Assistance with Respiratory Ventilation, Less than 24 Consecutive Hours, Continuous Positive Airway Pressure (ICD-10-PCS; principal; 2019-08-21)
DX: J96.21 Acute and chronic respiratory failure with hypoxia (principal); J44.1 Chronic obstructive pulmonary disease with (acute) exacerbation; J45.901 Unspecified asthma with (acute) exacerbation; I50.32 Chronic diastolic (congestive) heart failure; F17.210 Nicotine dependence, cigarettes, uncomplicated; D72.829 Elevated white blood cell count, unspecified; F31.9 Bipolar disorder, unspecified; I11.0 Hypertensive heart disease with heart failure; E11.65 Type 2 diabetes mellitus with hyperglycemia; G47.00 Insomnia, unspecified; T38.0X5A Adverse effect of glucocorticoids and synthetic analogues, initial encounter; Z53.29 Procedure and treatment not carried out because of patient's decision for other reasons; Z20.828 Contact with and (suspected) exposure to other viral communicable diseases; J96.22 Acute and chronic respiratory failure with hypercapnia; Z83.3 Family history of diabetes mellitus; Z91.14 Patient's other noncompliance with medication regimen; Z88.5 Allergy status to narcotic agent; Z59.0 Homelessness; Q67.6 Pectus excavatum
CPT/HCPCS: 36415; 36600; 84145; 96361; 96365; 99291; J7613; 71045; 80048; 80076; 82103; 82728; 82803; 82962; 83036; 83605; 83615; 83735; 83880; 84100; 84443; 85025; 85379; 85610; 86140; 87040; 87081; 93005; 94640; 94660; G0378; J0456; J1650; J1815; J2920; J7040; J7050; U0001-CS

== ENCOUNTER 2019-08-27 23:19 | Inpatient (IN) | payer MEDICAID ==
[~2019-08-27] VITALS: Ht 182.9 cm; Wt 86.9 kg
[~2019-08-27 23:19] MED LIST changes: +DIVA500T17 PO; +RISP2TAB3 PO
[2019-08-27] MEDS ORDERED: methylPREDNISolone SOD SUCC 125 MG/2 ML IV ONE (23:30)
[2019-08-27] MEDS ORDERED: ALBUTEROL/IPRATROPIUM 2.5MG/0.5MG, 3 ML NPPB ONE (23:30)
[2019-08-27] MEDS ORDERED: ALBUTEROL/IPRATROPIUM 2.5MG/0.5MG, 3 ML ONE (23:37)
--- NOTE | 2019-08-27 23:43 | NUR ---
PATIENT GIVEN BREATHING TREATMENT, TOLERATING WELL. PATIENT VERBALZIED UNDERSTANDING OF BREATHING TREATMENT. [facility] CALL LIGHT WITHIN REACH, BED IN LOWEST LOCKED POSITION.
[2019-08-27 23:45] LABS: BASOPHILS # (AUTO) 0.02 x10^3/uL (0-0.1); BASOPHILS % (AUTO) 0 % (0-1); EOSINOPHILS # (AUTO) 0.12 x10^3/uL (0-0.4); EOSINOPHILS % (AUTO) 2 % (1-7); LYMPHOCYTES # (AUTO) 1.44 x10^3/uL (1-3.4); LYMPHOCYTES % (AUTO) 18 % (22-44); MD NO; MEAN CORPUSCULAR HEMOGLOBIN 30.5 pg (27.5-34.5); MEAN CORPUSCULAR HGB CONC 33.3 g/dL (33.2-36.2); MEAN PLATELET VOLUME 7.8 fL (7.4-10.4); MONOCYTES # (AUTO) 0.09 x10^3/uL (0.2-0.8); MONOCYTES % (AUTO) 1 % (2-9); NEUTROPHILS # (AUTO) 6.47 x10^3/uL (1.8-6.8); NEUTROPHILS % (AUTO) 80 % (42-75); PLATELET COUNT 236 x10^3/uL (130-400); RED BLOOD COUNT 5.03 x10^6/uL (4.38-5.82); RED CELL DISTRIBUTION WIDTH 13.8 % (9.4-14.8)
[2019-08-27 23:54] LABS: ALANINE AMINOTRANSFERASE 31 U/L (12-78); ANION GAP 4 mmol/L (5-15); CALCIUM 8.5 mg/dL (8.5-10.1); CHLORIDE 107 mmol/L (98-107); CREATININE 1.07 mg/dL (0.7-1.3)
[2019-08-27 23:59] LABS: ALKALINE PHOSPHATASE 52 U/L (45-117); BILIRUBIN,TOTAL 0.4 mg/dL (0.2-1.0); TOTAL PROTEIN 6.1 g/dL (6.4-8.2)
[2019-08-28] LABS: TROPONIN I 0.435 ng/mL (0.000-0.045)
[2019-08-28] MEDS ORDERED: methylPREDNISolone SOD SUCC 125 MG/2 ML ONE (00:02)
[2019-08-28] MEDS ORDERED: NICOTINE 21 MG/24 HR PATCH.TD24 ONE (00:20)
--- NOTE | 2019-08-28 00:21 | NUR ---
PATIENT BACK FROM CT, TOLERATED WELL.
[2019-08-28] MEDS ORDERED: NICOTINE 21 MG/24 HR PATCH.TD24 TD ONE (00:30)
[2019-08-28] MEDS ORDERED: ONDANSETRON 2MG/ML, 2ML IVPush PRN (01:30)
[2019-08-28] MEDS ORDERED: ACETAMINOPHEN 325 MG TABLET PO PRN (01:30)
[2019-08-28] MEDS ORDERED: ALBUTEROL/IPRATROPIUM 2.5MG/0.5MG, 3 ML HHN PRN (02:00)
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
[2019-08-28] MEDS ORDERED: OMNIPAQUE 350 MG/ML, 100ML BOTTLE ONE (02:34)
--- NOTE | 2019-08-28 03:30 | NUR ---
PATIENT RESTING IN BED, NO NOTED ACUTE DISTRESS. TOLERATING INTERVENTIONS WELL. VITAL SIGNS STABLE. WILL CONTINUE TO MONITOR.
--- NOTE | 2019-08-28 04:43 | NUR ---
PATIENT TRANSFERRED FROM [facility] TO [facility] BED TO IMPROVE PATIENT COMFORT. PATIENT TOLERATED WELL. NO NOTED NEEDS AT THIS TIME. VITAL SIGNS STABLE. WILL CONTINUE TO MONITOR.
--- NOTE | 2019-08-28 05:46 | NUR ---
LABS DRAWN AND SENT TO LAB. PATIENT TOLERATED WELL. NO NOTED ACUTE DISTRESS. VITAL SIGNS STABLE PRIOR TO TRANSPORT TO FLOOR.
[2019-08-28 05:53] VITALS: BP 125/80
[2019-08-28 06:41] LABS: TROPONIN I 0.422 ng/mL (0.000-0.045)
[2019-08-28] MEDS: BUDESONIDE 0.5 MG/2 ML INHA NPPB SCH ×2 (07:35→20:24)
[2019-08-28] MEDS: ALBUTEROL/IPRATROPIUM 2.5MG/0.5MG, 3 ML NPPB SCH ×4 (07:35→20:24)
[2019-08-28] MEDS ORDERED: RISPERIDONE 0.5 MG TABLET ONE (08:52)
[2019-08-28] MEDS: RISPERIDONE 2 MG TABLET PO SCH ×2 (09:00→21:07)
[2019-08-28 09:59] VITALS: BP 118/73
[2019-08-28 10:00] LABS: FIO2 RA %
[2019-08-28] MEDS: NICOTINE 21 MG/24 HR PATCH.TD24 TD SCH (10:36)
[2019-08-28 15:58] VITALS: BP 110/65
[2019-08-28] MEDS: NICOTINE GUM 4 MG BC PRN ×3 (18:31→23:49)
[2019-08-28 19:59] VITALS: BP 154/76
[2019-08-28] MEDS: DIVALPROEX 500 MG TAB.ER.24H PO SCH (21:07)
[2019-08-29 02:00] VITALS: BP 147/71
[2019-08-29] MEDS: NICOTINE GUM 4 MG BC PRN ×6 (04:41→23:33)
[2019-08-29 06:29] LABS: BASOPHILS # (AUTO) 0.01 x10^3/uL (0-0.1); BASOPHILS % (AUTO) 0 % (0-1); EOSINOPHILS # (AUTO) 0.04 x10^3/uL (0-0.4); EOSINOPHILS % (AUTO) 0 % (1-7); LYMPHOCYTES # (AUTO) 1.39 x10^3/uL (1-3.4); LYMPHOCYTES % (AUTO) 12 % (22-44); MD NO; MEAN CORPUSCULAR HEMOGLOBIN 30.3 pg (27.5-34.5); MEAN CORPUSCULAR HGB CONC 32.6 g/dL (33.2-36.2); MEAN PLATELET VOLUME 8.3 fL (7.4-10.4); MONOCYTES # (AUTO) 0.08 x10^3/uL (0.2-0.8); MONOCYTES % (AUTO) 1 % (2-9); NEUTROPHILS # (AUTO) 9.71 x10^3/uL (1.8-6.8); NEUTROPHILS % (AUTO) 87 % (42-75); PLATELET COUNT 211 x10^3/uL (130-400); RED BLOOD COUNT 4.85 x10^6/uL (4.38-5.82); RED CELL DISTRIBUTION WIDTH 14.5 % (9.4-14.8)
[2019-08-29 06:35] LABS: ANION GAP 5 mmol/L (5-15); CALCIUM 8.8 mg/dL (8.5-10.1); CHLORIDE 102 mmol/L (98-107); CREATININE 0.96 mg/dL (0.7-1.3)
[2019-08-29 06:47] VITALS: BP 124/69
[2019-08-29] MEDS: ALBUTEROL/IPRATROPIUM 2.5MG/0.5MG, 3 ML NPPB SCH ×3 (07:58→19:35)
[2019-08-29] MEDS: BUDESONIDE 0.5 MG/2 ML INHA NPPB SCH ×2 (07:58→19:35)
[2019-08-29] MEDS: RISPERIDONE 2 MG TABLET PO SCH ×2 (09:25→21:14)
[2019-08-29] MEDS: NICOTINE 21 MG/24 HR PATCH.TD24 TD SCH (09:25)
[2019-08-29 12:25] VITALS: BP 109/70
[2019-08-29] MEDS: AZITHROMYCIN 500 MG TABLET PO SCH (16:11)
[2019-08-29] MEDS: methylPREDNISolone SOD SUCC 125 MG/2 ML IVPush SCH ×2 (16:11→21:14)
[2019-08-29 19:10] VITALS: BP 114/76
[2019-08-29] MEDS: DIVALPROEX 500 MG TAB.ER.24H PO SCH (21:14)
[2019-08-30] MEDS: NICOTINE GUM 4 MG BC PRN ×4 (01:42→16:00)
[2019-08-30 01:56] VITALS: BP 109/73
[2019-08-30] MEDS: methylPREDNISolone SOD SUCC 125 MG/2 ML IVPush SCH ×3 (04:20→16:00)
[2019-08-30] MEDS: BUDESONIDE 0.5 MG/2 ML INHA NPPB SCH (07:03)
[2019-08-30] MEDS: ALBUTEROL/IPRATROPIUM 2.5MG/0.5MG, 3 ML NPPB SCH (07:03)
[2019-08-30 08:24] VITALS: BP 155/88
[2019-08-30] MEDS: RISPERIDONE 2 MG TABLET PO SCH (09:51)
[2019-08-30] MEDS: NICOTINE 21 MG/24 HR PATCH.TD24 TD SCH (09:51)
[2019-08-30] MEDS: AZITHROMYCIN 500 MG TABLET PO SCH (09:51)
[2019-08-30 12:30] VITALS: BP 133/79
[2019-08-30] MEDS ORDERED: AZIT500T10 PO (13:58)
[2019-08-30] MEDS ORDERED: PRED5TAB PO (13:58)
[2019-08-30] MEDS ORDERED: BUDE180A INH (13:58)
[2019-08-30] MEDS ORDERED: IPRA3AMP30 HHN (13:58)
== END 2019-08-30 18:38 | disposition home or self-care (01) | DRG 189 ==
LOC: ED 08-28 01:37 → EDIP 08-28 01:44 → 5SO 08-28 05:41 → 4EST 08-28 17:53
PROVIDERS: ADMIT Internal Medicine; ATTEND Internal Medicine
DX: J96.01 Acute respiratory failure with hypoxia (principal); I21.4 Non-ST elevation (NSTEMI) myocardial infarction; J44.1 Chronic obstructive pulmonary disease with (acute) exacerbation; R45.851 Suicidal ideations; F17.200 Nicotine dependence, unspecified, uncomplicated; E11.9 Type 2 diabetes mellitus without complications; E88.01 Alpha-1-antitrypsin deficiency; F31.9 Bipolar disorder, unspecified; Z90.2 Acquired absence of lung [part of]; Q89.9 Congenital malformation, unspecified; Z83.3 Family history of diabetes mellitus; I10 Essential (primary) hypertension
CPT/HCPCS: 36415; 36600; 96374; 99285; J7626; 71045; 71275; 80048; 80053; 82803; 83036; 83880; 84484; 85025; 93005; 94640; G0378; J2405; Q9967; J2930; J7512

== ENCOUNTER 2019-11-05 23:53 | Emergency (ER) | payer MEDICAID ==
[~2019-11-05] VITALS: Ht 177.8 cm; Wt 89.2 kg
[~2019-11-05 23:53] MED LIST changes: +BUDE180A INH; +IPRA3AMP30 HHN; +PRED5TAB PO
--- NOTE | 2019-11-06 | NUR ---
PATIENT ENDORSES AUDITORY HALLUCINATIONS THAT TELL HIM TO KILL HIMSELF. HE STATES "IF I WEREN'T AT THIS HOSPITAL ID GET A GUN AND BLOW MY HEAD OFF." HE STATES HE TAKES RISPERIDOL, DEPAKOTE, AND INVEGA INJECTIONS.
[2019-11-06] MEDS ORDERED: LORazepam 1MG TABLET PO ONE (00:30)
[2019-11-06] MEDS ORDERED: LORazepam 1MG TABLET ONE (00:40)
--- NOTE | 2019-11-06 00:47 | NUR ---
pATIENT VERIFIED NAME, , ALLERGIES, AND 5 RIGHTS VERIFIED. 1 MG ATIVAN PO ADMINSTERED PER MD ORDER.
[2019-11-06 00:48] LABS: BASOPHILS # (AUTO) 0.01 x10^3/uL (0-0.1); BASOPHILS % (AUTO) 0 % (0-1); EOSINOPHILS # (AUTO) 0.02 x10^3/uL (0-0.4); EOSINOPHILS % (AUTO) 0 % (1-7); LYMPHOCYTES % (AUTO) 17 % (22-44); MD NO; MEAN CORPUSCULAR HEMOGLOBIN 30.6 pg (27.5-34.5); MEAN CORPUSCULAR HGB CONC 34.2 g/dL (33.2-36.2); MEAN CORPUSCULAR VOLUME 89.5 fL (81-97); MEAN PLATELET VOLUME 8.3 fL (7.4-10.4); MONOCYTES # (AUTO) 0.54 x10^3/uL (0.2-0.8); MONOCYTES % (AUTO) 7 % (2-9); NEUTROPHILS % (AUTO) 76 % (42-75); PLATELET COUNT 252 x10^3/uL (130-400); RED BLOOD COUNT 5.38 x10^6/uL (4.38-5.82); RED CELL DISTRIBUTION WIDTH 14.2 % (9.4-14.8)
[2019-11-06 00:53] LABS: ALANINE AMINOTRANSFERASE 21 U/L (12-78); ALBUMIN 3.7 g/dL (3.4-5.0); ANION GAP 7 mmol/L (5-15); CHLORIDE 105 mmol/L (98-107)
--- NOTE | 2019-11-06 00:59 | NUR ---
PATIENT RESTING COMFORTABLY. HE IS CALM AND COOPERATIVE.
[2019-11-06 01:00] LABS: ALKALINE PHOSPHATASE 61 U/L (45-117); BILIRUBIN,TOTAL 0.8 mg/dL (0.2-1.0); CREATININE 1.09 mg/dL (0.7-1.3); SALICYLATE LEVEL < 1.7 mg/dL (2.8-20.0); TOTAL PROTEIN 6.8 g/dL (6.4-8.2)
[2019-11-06 02:16] LABS: AMPHETAMINE SCREEN, URINE Negative (Negative); BARBITURATE SCREEN, URINE Negative (Negative); BENZODIAZEPINE SCREEN, URINE Negative (Negative); CANNABINOID SCREEN, URINE Negative (Negative); COCAINE SCREEN, URINE Negative (Negative); METHADONE SCREEN, URINE Negative (Negative); OPIATE SCREEN, URINE Negative (Negative)
[2019-11-06] MEDS: NICOTINE 14MG/24 HR PATCH.TD24 TD ONE ×2 (02:30→11:22)
[2019-11-06] MEDS ORDERED: NICOTINE 14MG/24 HR PATCH.TD24 ONE ×2 (02:34→11:09)
--- NOTE | 2019-11-06 03:00 | NUR ---
patient sitting in bed, awake, in no apparent distress. He denies any request. He was given juice and crackers and tolerated them well.
--- NOTE | 2019-11-06 04:00 | NUR ---
Patient lying on gurney, asleep yet responds to verbal stimuli. He denies any request or complaints at this time. Will continue to monitor.
--- NOTE | 2019-11-06 05:02 | NUR ---
PATIENT ASLEEP YET AROUSABLE TO VERBAL STIMULI. HE DENIES ANY COMPLAINTS AT THIS TIME. AWAITING PLACEMENT. WILL CONTINUE TO MONITOR.
--- NOTE | 2019-11-06 05:43 | NUR ---
PATIENT URINATED IN BED WHILE SLEEPING. LINENS WERE CHANGED AND DISPOSED OF INTO LINEN RECEPTACLE. WILL CONTINUE TO MONITOR.
--- NOTE | 2019-11-06 06:00 | NUR ---
PATIENT AWAKE AND IN NO APPARENT DISTRESS. WILL CONTINUE TO MONITOR.
--- NOTE | 2019-11-06 07:15 | NUR ---
REPORT FROM JAMAL, ASSUME CARE OF PT AT THIS TIME.
[2019-11-06] MEDS ORDERED: INVEGA INJECTION INJ (08:12)
[2019-11-06] MEDS ORDERED: ALBUTEROL INHALER INH (08:12)
--- NOTE | 2019-11-06 09:50 | NUR ---
PT AMBULATED TO BR WITH STEADY GAIT.
--- NOTE | 2019-11-06 10:27 | NUR ---
PT RESTING QUIETLY ON NAD. MAN
[2019-11-06] MEDS ORDERED: RISPERIDONE 2 MG TABLET ONE (11:27)
[2019-11-06] MEDS: RISPERIDONE 1 MG TABLET PO SCH ×2 (11:39→19:22)
--- NOTE | 2019-11-06 12:54 | NUR ---
PT RESTING/SINGING IN ROOM. MEAL TRAY DELIVERED, PT COOPERATIVE AND PLEASANT.
--- NOTE | 2019-11-06 15:07 | NUR ---
PT RESTING QUIETLY IN ROOM, ASKS FOR UPDATE. PT INFORMED OF PROGRESS WITH PLACEMENT. REPORT TO SITTER, SITTER AT DOORWAY.
--- NOTE | 2019-11-06 17:00 | NUR ---
REPORT CALLED TO [facility]. RN PORTION OF TRANSFER SHEET FILLED OUT AND PROVIDED TO SHANICE RAMOS RN.
--- NOTE | 2019-11-06 18:59 | NUR ---
BEDSIDE REPORT FROM LISETTE SANTIAGO. PT SITTING IN BED, NO SIGNS OF ACUTE DISTRESS, CALL LIGHT IN REACH, IN VIEW OF THE SITTER. ALL NEEDS MET AT THIS TIME.
--- NOTE | 2019-11-06 19:03 | NUR ---
REPORT TO BARBARA, TRANSFER OF CARE AT THIS TIME.
[2019-11-06 19:18] VITALS: BP 122/77
[2019-11-06] MEDS ORDERED: DIVALPROEX 500 MG TAB.ER.24H PO SCH (21:00)
== END 2019-11-06 19:22 ==
LOC: ED 11-06 02:16
DX: R45.851 Suicidal ideations (principal); R44.0 Auditory hallucinations; I10 Essential (primary) hypertension; F32.9 Major depressive disorder, single episode, unspecified; F17.210 Nicotine dependence, cigarettes, uncomplicated
CPT/HCPCS: 36415; 80053; 80164; 80307; 85025; 99285

== ENCOUNTER 2019-11-13 04:54 | Emergency (ER) | payer MEDICAID ==
[~2019-11-13] VITALS: Ht 180.3 cm; Wt 86.9 kg
[~2019-11-13 04:54] MED LIST changes: +ALBUTEROL INHALER INH; +INVEGA INJECTION INJ
[2019-11-13 04:59] VITALS: BP 133/67
--- NOTE | 2019-11-13 05:15 | NUR ---
PT TO ED WITH SI, REPORTS CURRENT MANIC EPISODE WITH INSOMNIA 86+ HRS, HX OF BIPOLAR DISORDER. PT STATES "IM THINKING ABOUT WRAPPING A ROPE AROUND MY NECK, BUT I DONT WANT TO BECAUSE THEN I WONT SEE MY KIDS, IM FEELING REALLY BROKEN UP ABOUT IT". PT APPEARS DISTRESSED, COOPERATIVE. PT PLACED IN HOSPITAL GOWN, BELONGINGS REMOVED IN 1 OF 1 BAGS AND PLACED IN LOCKER. ROOM SECURED, SITTER IN HALLWAY WITHIN LINE OF SIGHT.
[2019-11-13] MEDS ORDERED: NICOTINE 21 MG/24 HR PATCH.TD24 ONE (05:19)
[2019-11-13] MEDS ORDERED: NICOTINE 21 MG/24 HR PATCH.TD24 TD ONE (05:30)
[2019-11-13 05:53] LABS: AMPHETAMINE SCREEN, URINE Negative (Negative); BARBITURATE SCREEN, URINE Negative (Negative); BENZODIAZEPINE SCREEN, URINE Negative (Negative); CANNABINOID SCREEN, URINE Negative (Negative); COCAINE SCREEN, URINE Negative (Negative); METHADONE SCREEN, URINE Negative (Negative); OPIATE SCREEN, URINE Negative (Negative)
[2019-11-13 05:56] LABS: ALBUMIN 3.8 g/dL (3.4-5.0); ANION GAP 4 mmol/L (5-15); CHLORIDE 103 mmol/L (98-107)
[2019-11-13 05:58] LABS: SALICYLATE LEVEL < 1.7 mg/dL (2.8-20.0)
[2019-11-13 06:08] LABS: BASOPHILS # (AUTO) 0.05 x10^3/uL (0-0.1); BASOPHILS % (AUTO) 1 % (0-1); EOSINOPHILS # (AUTO) 0.05 x10^3/uL (0-0.4); EOSINOPHILS % (AUTO) 1 % (1-7); LYMPHOCYTES # (AUTO) 1.43 x10^3/uL (1-3.4); LYMPHOCYTES % (AUTO) 14 % (22-44); MD NO; MEAN CORPUSCULAR HEMOGLOBIN 30.1 pg (27.5-34.5); MEAN CORPUSCULAR HGB CONC 33.1 g/dL (33.2-36.2); MEAN CORPUSCULAR VOLUME 90.9 fL (81-97); MEAN PLATELET VOLUME 8.1 fL (7.4-10.4); MONOCYTES # (AUTO) 0.82 x10^3/uL (0.2-0.8); MONOCYTES % (AUTO) 8 % (2-9); NEUTROPHILS # (AUTO) 7.82 x10^3/uL (1.8-6.8); NEUTROPHILS % (AUTO) 77 % (42-75); PLATELET COUNT 231 x10^3/uL (130-400); RED BLOOD COUNT 5.54 x10^6/uL (4.38-5.82); RED CELL DISTRIBUTION WIDTH 14.8 % (9.4-14.8)
[2019-11-13] MEDS ORDERED: RISPERIDONE 2 MG TABLET ONE (06:18)
--- NOTE | 2019-11-13 06:23 | NUR ---
PT MEDICATED PER MAR, PT CALM AND COOPERATIVE, ATTEMPTING SLEEP AT THIS TIME. SITTER IN HALLWAY WITHIN LINE OF SIGHT, ROOM SECURED.
--- NOTE | 2019-11-13 06:49 | NUR ---
REPORT TO LISETTE ALVARADO.
--- NOTE | 2019-11-13 06:57 | NUR ---
report from huy ruiz resting, sitter present. no needs at this time
--- NOTE | 2019-11-13 07:30 | NUR ---
PT GIVEN MEAL TRAY, SITTER PRESENT
--- NOTE | 2019-11-13 08:30 | NUR ---
PT RESTING, SITTER PRESENT
[2019-11-13] MEDS ORDERED: RISPERIDONE 2 MG TABLET PO SCH (09:00)
--- NOTE | 2019-11-13 09:30 | NUR ---
PT RESTING, SITTER PRESENT, NO NEEDS AT THIS TIME
--- NOTE | 2019-11-13 10:19 | NUR ---
PT AMUBLATD TO BATHROOM , GIVEN WATER, SITTER PRESENT
--- NOTE | 2019-11-13 10:50 | NUR ---
REPORT TO MARIO
--- NOTE | 2019-11-13 10:56 | NUR ---
RECEIVED REPORT FROM JENNY KNOX. ASSUMING CARE AT THIS TIME. PT SITTING ON GURNEY. ELIJAH. PT IN DIRECT SIGHT OF SITTER. ROOM SECURE.
--- NOTE | 2019-11-13 11:08 | NUR ---
THROUGHPUT: PT ON A LEGAL HOLD, MEDICALLY CLEARED. PT HAS MEDICAID [place], REFERRAL PACKET FA[facility]ED TO [facility]
--- NOTE | 2019-11-13 11:56 | NUR ---
DIET TRAY DELIVERED. PT APPRECIATIVE. PT IN DIRECT SIGHT OF SITTER.
--- NOTE | 2019-11-13 12:18 | NUR ---
THROUGHPUT: ACCEPTING MD DR. LONDONO, CALLED KEILY, CALLED SHANTAL AT [facility], SET UP AT 1300 FOR AMBULANCE. COBRA COMPLETED AND SIGNED BY , PACKET MADE, AITCHBONE BREAKER AT 1300
--- NOTE | 2019-11-13 12:35 | NUR ---
REPORT GIVEN TO ALEX KNOX AT [facility].
[2019-11-13] MEDS ORDERED: DIVALPROEX 500 MG TAB.ER.24H PO SCH (21:00)
== END 2019-11-13 13:52 ==
LOC: ED 06:00
DX: R45.851 Suicidal ideations (principal); I10 Essential (primary) hypertension; J45.909 Unspecified asthma, uncomplicated; F32.9 Major depressive disorder, single episode, unspecified
CPT/HCPCS: 36415; 80048; 80307; 82040; 85025; 99285

== ENCOUNTER 2019-11-16 22:09 | Emergency (ER) | payer MEDICAID ==
[~2019-11-16] VITALS: Ht 182.9 cm; Wt 89.3 kg
[2019-11-16 22:15] VITALS: BP 123/72
--- NOTE | 2019-11-16 22:34 | NUR ---
PT SITTING IN SECURE ROOM, BELONGINGS IN LOCKER IN BASILIO.
[2019-11-16] MEDS ORDERED: RISPERIDONE 2 MG TABLET ONE (22:49)
[2019-11-16] MEDS ORDERED: NICOTINE 14MG/24 HR PATCH.TD24 ONE (22:49)
[2019-11-16] MEDS ORDERED: VALPROIC ACID 250 MG CAPSULE PO ONE (23:00)
[2019-11-16] MEDS ORDERED: RISPERIDONE 2 MG TABLET PO ONE (23:00)
[2019-11-16] MEDS ORDERED: NICOTINE 14MG/24 HR PATCH.TD24 TD ONE (23:00)
--- NOTE | 2019-11-16 23:00 | NUR ---
ERP TO BEDSIDE TO DISCUSS EXTENSIVELY PT'S HX AND CONDITION AND POC.
[2019-11-16] MEDS ORDERED: DIPH,PERTUSS(ACELL),TET VAC/PF 0.5 ML IM-VACC ONE ×2 (23:21→23:30)
--- NOTE | 2019-11-16 23:53 | NUR ---
PT REMAINS SITTING IN [facility]. ALL NEEDS MET AT THIS TIME.
== END 2019-11-17 01:59 | disposition home or self-care (01) ==
LOC: ED 11-17 00:05
DX: S51.811A Laceration without foreign body of right forearm, initial encounter (principal); F32.0 Major depressive disorder, single episode, mild; I10 Essential (primary) hypertension; E11.9 Type 2 diabetes mellitus without complications; J45.909 Unspecified asthma, uncomplicated; F17.210 Nicotine dependence, cigarettes, uncomplicated; Z90.2 Acquired absence of lung [part of]; Z72.9 Problem related to lifestyle, unspecified; X78.8XXA Intentional self-harm by other sharp object, initial encounter; Y93.89 Activity, other specified; Y92.89 Other specified places as the place of occurrence of the external cause; Y99.8 Other external cause status
CPT/HCPCS: 90471; 90715; 99283; 99406

== ENCOUNTER 2019-11-28 05:52 | Inpatient (IN) | payer MEDICAID ==
[~2019-11-28] VITALS: Ht 180.3 cm; Wt 89.7 kg
[2019-11-28] MEDS ORDERED: methylPREDNISolone SOD SUCC 125 MG/2 ML ONE (06:24)
[2019-11-28] MEDS ORDERED: ALBUTEROL SULFATE 2.5 MG/3 ML ONE ×2 (06:25→07:27)
[2019-11-28] MEDS ORDERED: SODIUM CHLORIDE FLUSH 10ML SYR IVF ONE (06:30)
[2019-11-28] MEDS ORDERED: methylPREDNISolone SOD SUCC 125 MG/2 ML IV ONE (06:30)
[2019-11-28] MEDS: ALBUTEROL SULFATE 2.5 MG/3 ML NPPB SCH ×2 (06:31→07:32)
[2019-11-28 06:37] LABS: BASOPHILS # (AUTO) 0.03 x10^3/uL (0-0.1); BASOPHILS % (AUTO) 0 % (0-1); EOSINOPHILS # (AUTO) 0.02 x10^3/uL (0-0.4); EOSINOPHILS % (AUTO) 0 % (1-7); LYMPHOCYTES % (AUTO) 14 % (22-44); MD NO; MEAN CORPUSCULAR HEMOGLOBIN 30.5 pg (27.5-34.5); MEAN CORPUSCULAR HGB CONC 33.4 g/dL (33.2-36.2); MEAN PLATELET VOLUME 8.2 fL (7.4-10.4); MONOCYTES # (AUTO) 0.47 x10^3/uL (0.2-0.8); MONOCYTES % (AUTO) 4 % (2-9); NEUTROPHILS # (AUTO) 10.38 x10^3/uL (1.8-6.8); NEUTROPHILS % (AUTO) 82 % (42-75); PLATELET COUNT 174 x10^3/uL (130-400); RED BLOOD COUNT 5.86 x10^6/uL (4.38-5.82); RED CELL DISTRIBUTION WIDTH 15.1 % (9.4-14.8)
--- NOTE | 2019-11-28 06:39 | NUR ---
THIS PT WAS BIB [facility] AFTER CALLING 911 HIMSELF BECAUSE HE WAS HAVING INCREASING SOB AND WOB. PT PRESENTS TO THE ER WITH NOTED WOB, BUT SATING WELL WITH NON-REBREATHER AND DENIES RESPIRATORY DISTRESS. PT CONNECTED TO CARDIAC, BP AND O2 MONITORS. PT ABLE TO CONVERSE WITHOUT INCREASED WOB.
[2019-11-28 06:48] LABS: ALBUMIN 3.1 g/dL (3.4-5.0); ANION GAP 4 mmol/L (5-15); CALCIUM 8.6 mg/dL (8.5-10.1); CHLORIDE 104 mmol/L (98-107); CREATININE 1.05 mg/dL (0.7-1.3)
--- NOTE | 2019-11-28 06:53 | NUR ---
REPORT TO LISETTE BELLA.
--- NOTE | 2019-11-28 07:03 | NUR ---
PT COMPLETED NEBULIZED TREATMENT. PT RESTING SEMI-FOWLERS ON GURNEY. PT STATES HE HAS SOME ABD PAIN, BUT ITS MANAGABLE. AWAITING FURHTER ORDERS.
--- NOTE | 2019-11-28 07:16 | NUR ---
KS STATES HE FELT MILD RELIEF, "LITTLE LOOSER" WITH THE NEBULIZED TREATMENT.
--- NOTE | 2019-11-28 07:52 | NUR ---
NEBULIZE TX COMPLETED. PT STTES SOME RELIEF FROM TX. PT PLACED ON NASAL CANNULA, 6 LPM.
[2019-11-28] MEDS ORDERED: AZITHROMYCIN 500 MG in SODIUM CHLORIDE 0.9% 250 ML IV ONE (08:00)
[2019-11-28] MEDS ORDERED: CEFTRIAXONE PMX 1GM/50ML 50 ML IVPB ONE (08:00)
[2019-11-28] MEDS ORDERED: RISPERIDONE (08:06)
[2019-11-28] MEDS ORDERED: CEFTRIAXONE PMX 1GM/50ML 50 ML ONE (08:38)
--- NOTE | 2019-11-28 08:40 | NUR ---
LAB BEDSIDE ATTEMPTING TO DRAW CULTURES. ATTEMPT 1 FAILED. LAB SENDING A SECOND PERSON.
--- NOTE | 2019-11-28 08:58 | NUR ---
SECOND LAB PERSON AT BEDSIDE ATTEMPTING TO OBTAIN CULTURES. DELAY IN ABX WAITING FOR CULTURES.
--- NOTE | 2019-11-28 09:12 | NUR ---
ABX BEING ADMINISTERED AFTER SECOND CULTURES DRAWN.
--- NOTE | 2019-11-28 10:12 | NUR ---
PT RESTING COMFORTABLY WITH EYES CLOSED. CHEST RISE AND FALL NOTED. PT ABX STARTED PER APR.
[2019-11-28] MEDS ORDERED: SODIUM CHLORIDE 0.9% 1,000 ML IV SCH ×3 (11:49→17:00)
--- NOTE | 2019-11-28 11:54 | NUR ---
PT ONTO HOSPITAL BED WHILE AWAITING ROOM ASSIGNMENT
[2019-11-28] MEDS ORDERED: ACETAMINOPHEN 325 MG TABLET PO PRN (12:00)
[2019-11-28] MEDS ORDERED: ONDANSETRON 2MG/ML, 2ML IVPush PRN (12:00)
[2019-11-28] MEDS ORDERED: LABETALOL 5MG/ML, 20ML IVPush PRN (12:00)
[2019-11-28] MEDS ORDERED: hydrALAzine 20 MG/ML, 1ML IVPush PRN (12:00)
[2019-11-28] MEDS ORDERED: PROMETHAZINE 25 MG/ML, 1ML IM PRN (12:00)
[2019-11-28] MEDS: CEFTRIAXONE PMX 1GM/50ML 50 ML IV SCH (12:00)
[2019-11-28] MEDS: AZITHROMYCIN 500 MG in SODIUM CHLORIDE 0.9% 250 ML IV SCH (12:00)
--- NOTE | 2019-11-28 13:07 | NUR ---
ORDER CLARIFCATIONS RECEIVED VIA PHONE FROM DR ALCALA: HOLD TODAY'S PREDNISONE DOSE BECAUSE PT HAD RECEIVED SOLUMEDEROL VIA ER ORDER. NS AT 250/HR FOR 2 LITERS AND THEN SWITCH TO 75 ML/HR.
[2019-11-28] MEDS ORDERED: ENOXAPARIN 40 MG/0.4 ML ONE (13:21)
[2019-11-28] MEDS ORDERED: GUAIFENESIN 200 MG TABLET ONE (13:21)
[2019-11-28] MEDS: ENOXAPARIN 40 MG/0.4 ML SQ SCH (13:27)
[2019-11-28] MEDS: GUAIFENESIN 200 MG TABLET PO SCH ×3 (13:27→20:12)
[2019-11-28] MEDS: FLUTICASONE/VILANTEROL 100-25MCG/INH INH SCH (13:37)
[2019-11-28] MEDS: ALBUTEROL-IPRATROPIUM MDI INH INH SCH ×2 (13:37→20:15)
--- NOTE | 2019-11-28 13:52 | NUR ---
PT EDUCATED ON HOW TO USE INHALERS. PT RINSED MOUTH AND SPIT AFTER INHALER USE.
--- NOTE | 2019-11-28 16:50 | NUR ---
PROVIDER BEDSIDE TO EVALUATE PT AND ENTER ORDERS. PROVIDER CONTACTED ABOUT ORDERS ALL ORIGINATING FOR 11/28. TORSTEN, RECEIVING RN ON THE FLOOR, ADVISED THAT THE PROVIDER SET ORDERS FOR 1000 ML TO BE GIVEN AT 500ML/HR. AFTER THE 1000 ML COMPLETED, THE PROVIDER ORDERED NORMAL SALINE AT 125 ML/HR. TORSTEN STATED UNDERSTANDING OF THE ORDERS AND WILL CONTACT PHARMACY TO RESOLVE THE MAR. PT ALSO REQUESTING NICOTINE PATCH OR GUM TONIGHT.
--- NOTE | 2019-11-28 17:18 | NUR ---
SPOKE WITH LISETTE SARMIENTO AND GAVE PHONE REPORT.
[2019-11-28 18:58] VITALS: BP 119/76
[2019-11-28] MEDS: DIVALPROEX 500 MG TAB.ER.24H PO SCH (20:12)
[2019-11-28] MEDS: SODIUM CHLORIDE 0.9% 1,000 ML IV SCH (20:22)
[2019-11-29 00:33] VITALS: BP 151/87
[2019-11-29] MEDS: ALBUTEROL-IPRATROPIUM MDI INH INH SCH ×4 (03:12→20:04)
[2019-11-29] MEDS: GUAIFENESIN 200 MG TABLET PO SCH ×4 (05:19→20:55)
[2019-11-29 06:12] LABS: ALBUMIN 2.4 g/dL (3.4-5.0); ANION GAP 3 mmol/L (5-15); CALCIUM 7.8 mg/dL (8.5-10.1); CHLORIDE 104 mmol/L (98-107)
[2019-11-29 06:17] LABS: ALANINE AMINOTRANSFERASE 27 U/L (12-78); ALKALINE PHOSPHATASE 45 U/L (45-117); BILIRUBIN,TOTAL 0.7 mg/dL (0.2-1.0); CREATININE 0.76 mg/dL (0.7-1.3); TOTAL PROTEIN 4.9 g/dL (6.4-8.2)
[2019-11-29 06:19] LABS: MEAN CORPUSCULAR HEMOGLOBIN 30.5 pg (27.5-34.5); MEAN CORPUSCULAR HGB CONC 33.2 g/dL (33.2-36.2); MEAN PLATELET VOLUME 8.3 fL (7.4-10.4); PLATELET COUNT 148 x10^3/uL (130-400); RED BLOOD COUNT 4.58 x10^6/uL (4.38-5.82); RED CELL DISTRIBUTION WIDTH 14.2 % (9.4-14.8)
[2019-11-29 06:35] LABS: BASOPHILS # (AUTO) 0.09 x10^3/uL (0-0.1); BASOPHILS % (AUTO) 1 % (0-1); EOSINOPHILS # (AUTO) 0.02 x10^3/uL (0-0.4); EOSINOPHILS % (AUTO) 0 % (1-7); LYMPHOCYTES # (AUTO) 1.62 x10^3/uL (1-3.4); LYMPHOCYTES % (AUTO) 13 % (22-44); MD SCAN; MONOCYTES # (AUTO) 0.55 x10^3/uL (0.2-0.8); MONOCYTES % (AUTO) 4 % (2-9); NEUTROPHILS # (AUTO) 10.14 x10^3/uL (1.8-6.8); NEUTROPHILS % (AUTO) 82 % (42-75)
[2019-11-29 06:37] VITALS: BP 131/84
[2019-11-29] MEDS: SODIUM CHLORIDE 0.9% 1,000 ML IV SCH (06:38)
[2019-11-29] MEDS: NICOTINE 21 MG/24 HR PATCH.TD24 TD SCH (08:01)
[2019-11-29] MEDS: FLUTICASONE/VILANTEROL 100-25MCG/INH INH SCH ×2 (08:01→09:03)
[2019-11-29 11:23] VITALS: BP 134/64
[2019-11-29] MEDS ORDERED: SODIUM CHLORIDE 0.9% 1,000 ML IV SCH (12:00)
[2019-11-29] MEDS: AZITHROMYCIN 500 MG in SODIUM CHLORIDE 0.9% 250 ML IV SCH (12:39)
[2019-11-29] MEDS: ENOXAPARIN 40 MG/0.4 ML SQ SCH (12:39)
[2019-11-29] MEDS: CEFTRIAXONE PMX 1GM/50ML 50 ML IV SCH (12:39)
[2019-11-29 20:20] VITALS: BP 132/75
[2019-11-29] MEDS: DIVALPROEX 500 MG TAB.ER.24H PO SCH (20:55)
[2019-11-30] VITALS: BP 144/87
[2019-11-30] MEDS: ALBUTEROL-IPRATROPIUM MDI INH INH SCH ×4 (02:21→20:28)
[2019-11-30] MEDS: GUAIFENESIN 200 MG TABLET PO SCH ×4 (05:29→20:28)
[2019-11-30 07:43] VITALS: BP 124/86
[2019-11-30] MEDS: INSULIN LISPRO 100 UNITS/ML, PEN SQ-INSULIN SCH ×4 (08:00→20:28)
[2019-11-30] MEDS: NICOTINE 21 MG/24 HR PATCH.TD24 TD SCH (08:20)
[2019-11-30] MEDS: ENOXAPARIN 40 MG/0.4 ML SQ SCH (11:25)
[2019-11-30] MEDS: CEFTRIAXONE PMX 1GM/50ML 50 ML IV SCH (12:20)
[2019-11-30] MEDS: AZITHROMYCIN 500 MG in SODIUM CHLORIDE 0.9% 250 ML IV SCH (12:23)
[2019-11-30 13:51] VITALS: BP 111/70
[2019-11-30] MEDS: DIVALPROEX 500 MG TAB.ER.24H PO SCH (20:28)
[2019-11-30 20:56] VITALS: BP 124/74
[2019-12-01 01:10] VITALS: BP 134/78
[2019-12-01] MEDS: ALBUTEROL-IPRATROPIUM MDI INH INH SCH ×4 (02:35→20:58)
[2019-12-01] MEDS: NICOTINE 21 MG/24 HR PATCH.TD24 TD SCH ×2 (03:41→11:36)
[2019-12-01 05:11] LABS: ALBUMIN 2.8 g/dL (3.4-5.0); ANION GAP 4 mmol/L (5-15); CHLORIDE 97 mmol/L (98-107)
[2019-12-01 05:15] LABS: ALANINE AMINOTRANSFERASE 42 U/L (12-78); ALKALINE PHOSPHATASE 56 U/L (45-117); BILIRUBIN,TOTAL 0.6 mg/dL (0.2-1.0); CREATININE 0.88 mg/dL (0.7-1.3); TOTAL PROTEIN 5.9 g/dL (6.4-8.2)
[2019-12-01] MEDS: GUAIFENESIN 200 MG TABLET PO SCH ×4 (05:27→21:29)
[2019-12-01 05:32] LABS: MEAN CORPUSCULAR HEMOGLOBIN 30.1 pg (27.5-34.5); MEAN CORPUSCULAR HGB CONC 32.7 g/dL (33.2-36.2); MEAN PLATELET VOLUME 7.9 fL (7.4-10.4); PLATELET COUNT 165 x10^3/uL (130-400); RED BLOOD COUNT 5.48 x10^6/uL (4.38-5.82); RED CELL DISTRIBUTION WIDTH 14.4 % (9.4-14.8)
[2019-12-01 05:58] LABS: BASOPHILS % (AUTO) 0 % (0-1); EOSINOPHILS # (AUTO) 0.01 x10^3/uL (0-0.4); EOSINOPHILS % (AUTO) 0 % (1-7); LYMPHOCYTES # (AUTO) 1.47 x10^3/uL (1-3.4); LYMPHOCYTES % (AUTO) 13 % (22-44); MD SCAN; MONOCYTES # (AUTO) 0.21 x10^3/uL (0.2-0.8); MONOCYTES % (AUTO) 2 % (2-9); NEUTROPHILS # (AUTO) 9.34 x10^3/uL (1.8-6.8); NEUTROPHILS % (AUTO) 85 % (42-75)
[2019-12-01] MEDS: INSULIN LISPRO 100 UNITS/ML, PEN SQ-INSULIN SCH ×4 (07:00→20:26)
[2019-12-01 07:11] VITALS: BP 128/83
[2019-12-01] MEDS: FLUTICASONE/VILANTEROL 100-25MCG/INH INH SCH (08:10)
[2019-12-01] MEDS: CEFTRIAXONE PMX 1GM/50ML 50 ML IV SCH (11:41)
[2019-12-01] MEDS: ENOXAPARIN 40 MG/0.4 ML SQ SCH (11:41)
[2019-12-01 12:00] VITALS: BP 111/74
[2019-12-01 18:55] VITALS: BP 109/73
[2019-12-01] MEDS: DIVALPROEX 500 MG TAB.ER.24H PO SCH (21:29)
[2019-12-01] MEDS: AMOXICILLIN 250 MG/5 ML, ORAL SUSP PO SCH (21:30)
[2019-12-02 00:38] VITALS: BP 100/65
[2019-12-02] MEDS: ALBUTEROL-IPRATROPIUM MDI INH INH SCH ×4 (03:00→20:04)
[2019-12-02] MEDS: NICOTINE 21 MG/24 HR PATCH.TD24 TD SCH ×2 (04:48→20:19)
[2019-12-02] MEDS: GUAIFENESIN 200 MG TABLET PO SCH ×4 (06:06→20:19)
[2019-12-02] MEDS: INSULIN LISPRO 100 UNITS/ML, PEN SQ-INSULIN SCH ×4 (07:00→21:16)
[2019-12-02 07:47] VITALS: BP 107/72
[2019-12-02] MEDS: AMOXICILLIN 250 MG/5 ML, ORAL SUSP PO SCH ×2 (08:13→21:15)
[2019-12-02] MEDS: AZITHROMYCIN 250 MG TABLET PO SCH (08:13)
[2019-12-02] MEDS: FLUTICASONE/VILANTEROL 100-25MCG/INH INH SCH (08:14)
[2019-12-02] MEDS: ENOXAPARIN 40 MG/0.4 ML SQ SCH (11:12)
[2019-12-02 13:43] VITALS: BP 120/78
[2019-12-02 19:14] VITALS: BP 113/75
[2019-12-02] MEDS: DIVALPROEX 500 MG TAB.ER.24H PO SCH (20:19)
[2019-12-03 01:00] VITALS: BP 103/66
[2019-12-03] MEDS: ALBUTEROL-IPRATROPIUM MDI INH INH SCH ×3 (03:38→14:57)
[2019-12-03 06:00] LABS: BASOPHILS # (AUTO) 0.03 x10^3/uL (0-0.1); BASOPHILS % (AUTO) 0 % (0-1); EOSINOPHILS # (AUTO) 0.04 x10^3/uL (0-0.4); EOSINOPHILS % (AUTO) 0 % (1-7); LYMPHOCYTES # (AUTO) 1.64 x10^3/uL (1-3.4); LYMPHOCYTES % (AUTO) 14 % (22-44); MD NO; MEAN CORPUSCULAR HEMOGLOBIN 30.1 pg (27.5-34.5); MEAN CORPUSCULAR HGB CONC 32.6 g/dL (33.2-36.2); MEAN PLATELET VOLUME 8.2 fL (7.4-10.4); MONOCYTES # (AUTO) 0.62 x10^3/uL (0.2-0.8); MONOCYTES % (AUTO) 5 % (2-9); NEUTROPHILS # (AUTO) 9.19 x10^3/uL (1.8-6.8); NEUTROPHILS % (AUTO) 80 % (42-75); PLATELET COUNT 181 x10^3/uL (130-400); RED BLOOD COUNT 5.15 x10^6/uL (4.38-5.82); RED CELL DISTRIBUTION WIDTH 14.6 % (9.4-14.8)
[2019-12-03] MEDS: GUAIFENESIN 200 MG TABLET PO SCH ×3 (06:07→16:09)
[2019-12-03] MEDS: FLUTICASONE/VILANTEROL 100-25MCG/INH INH SCH (06:52)
[2019-12-03] MEDS: INSULIN LISPRO 100 UNITS/ML, PEN SQ-INSULIN SCH ×3 (07:00→16:16)
[2019-12-03] MEDS: NICOTINE 21 MG/24 HR PATCH.TD24 TD SCH (07:18)
[2019-12-03 07:27] VITALS: BP 112/79
[2019-12-03] MEDS: AZITHROMYCIN 250 MG TABLET PO SCH (08:37)
[2019-12-03] MEDS: AMOXICILLIN 250 MG/5 ML, ORAL SUSP PO SCH (08:37)
[2019-12-03] MEDS: ENOXAPARIN 40 MG/0.4 ML SQ SCH (11:25)
[2019-12-03] MEDS ORDERED: CEFTRIAXONE PMX 1GM/50ML 50 ML IV SCH (12:30)
[2019-12-03 13:05] VITALS: BP 128/78
[2019-12-03] MEDS ORDERED: DIVA500T4 PO (23:37)
== END 2019-12-03 17:16 | disposition left against medical advice (07) | DRG 871 ==
LOC: ED 07:08 → ORIP 07:55 → EDIP 13:32 → 4EST 17:50 → 3N 12-02 01:53
PROVIDERS: ADMIT Family Medicine; ATTEND Family Medicine
DX: A41.9 Sepsis, unspecified organism (principal); J15.6 Pneumonia due to other Gram-negative bacteria; J96.01 Acute respiratory failure with hypoxia; E87.4 Mixed disorder of acid-base balance; J45.41 Moderate persistent asthma with (acute) exacerbation; E11.9 Type 2 diabetes mellitus without complications; F31.9 Bipolar disorder, unspecified; I10 Essential (primary) hypertension; J43.9 Emphysema, unspecified; R65.20 Severe sepsis without septic shock; Z59.0 Homelessness; Z83.3 Family history of diabetes mellitus; Z87.891 Personal history of nicotine dependence; Z88.5 Allergy status to narcotic agent; D72.829 Elevated white blood cell count, unspecified; Z03.818 Encounter for observation for suspected exposure to other biological agents ruled out
CPT/HCPCS: 36415; 36600; 96365; 96375; 99291; J7613; 71045; 80048; 80053; 82040; 82803; 82962; 83036; 83605; 85025; 87040; 87635; 93005; 94640; G0378; J0456; J0696; J1650; J1815; J2930; J7030; J7050; J7512

== ENCOUNTER 2019-12-03 23:19 | Inpatient (IN) | payer MEDICAID, OTHER ==
[~2019-12-03] VITALS: Ht 177.8 cm; Wt 88.7 kg
[~2019-12-03 23:19] MED LIST changes: +RISPERIDONE
[2019-12-03] MEDS ORDERED: DIVA500T4 PO (23:37)
--- NOTE | 2019-12-03 23:44 | NUR ---
PT WALKED INTO ER TODAY DUE TO SOB. PT HAS PNEUMONIA, AMA'D FROM HOSPITAL THIS AM, PT BREATHING IS LABORED, DIMINSHED LUNG SOUNDS THROUGHOUT, PT USING ACCESSORY MUSCLES WHILE BREATHING, RT CALLED. PT PLACED ON 3L NC, SPO2 UP TO 96%. PT HAS HX OF SPONTANEOUS PNEUMO AND COPD LAW BERNABE AT FOR EVAL AND POC. WCTM.
[2019-12-03] MEDS ORDERED: ALBUTEROL 0.5%, 20ML ONE (23:46)
[2019-12-03] MEDS ORDERED: IPRATROPIUM 0.5 MG/2.5 ML INHA ONE (23:47)
[2019-12-03] MEDS ORDERED: CEFTRIAXONE PMX 1GM/50ML 50 ML ONE (23:49)
[2019-12-03] MEDS ORDERED: methylPREDNISolone SOD SUCC 125 MG/2 ML ONE (23:49)
[2019-12-04] MEDS ORDERED: methylPREDNISolone SOD SUCC 125 MG/2 ML IVPush ONE
[2019-12-04] MEDS ORDERED: MAGNESIUM SULFATE 1 GM/2 ML IVPush ONE
[2019-12-04] MEDS ORDERED: SODIUM CHLORIDE FLUSH 10ML SYR IVF ONE
[2019-12-04] MEDS ORDERED: CEFTRIAXONE PMX 1GM/50ML 50 ML IV ONE
--- NOTE | 2019-12-04 00:08 | NUR ---
pt on breathing tx, reports breathing is slightly better. R hand IV dc'd. Meds requested from pharmacy, pt medicated per apr. WCTM.
[2019-12-04] MEDS ORDERED: MAGNESIUM SULFATE/D5W 100 ML ONE (00:18)
[2019-12-04 00:29] LABS: ANION GAP 5 mmol/L (5-15); CALCIUM 9.2 mg/dL (8.5-10.1); CHLORIDE 100 mmol/L (98-107); CREATININE 1.16 mg/dL (0.7-1.3)
[2019-12-04 00:30] LABS: ALANINE AMINOTRANSFERASE 54 U/L (12-78); ALBUMIN 3.5 g/dL (3.4-5.0)
[2019-12-04] MEDS ORDERED: MAGNESIUM SULFATE/D5W 100 ML IVPB ONE (00:30)
[2019-12-04 00:34] LABS: BILIRUBIN,TOTAL 0.5 mg/dL (0.2-1.0)
[2019-12-04 00:35] LABS: ALKALINE PHOSPHATASE 58 U/L (45-117); TOTAL PROTEIN 6.8 g/dL (6.4-8.2)
--- NOTE | 2019-12-04 00:42 | NUR ---
PT LUNGS WHEEZING AT THIS TIME. BREATHING APPEARING SIGNIFICANTLY IMPROVED. NAD, RT AT BS. PT MEDICATED PER APR. WCTM. WAITING FOR ADMIT BED
[2019-12-04] MEDS ORDERED: NICOTINE 14MG/24 HR PATCH.TD24 ONE (00:44)
[2019-12-04 00:57] LABS: MEAN CORPUSCULAR HEMOGLOBIN 30.6 pg (27.5-34.5); MEAN CORPUSCULAR HGB CONC 33.4 g/dL (33.2-36.2); PLATELET COUNT 202 x10^3/uL (130-400); RED BLOOD COUNT 5.38 x10^6/uL (4.38-5.82); RED CELL DISTRIBUTION WIDTH 14.8 % (9.4-14.8)
[2019-12-04] MEDS ORDERED: NICOTINE 14MG/24 HR PATCH.TD24 TD ONE (01:00)
[2019-12-04 01:17] LABS: MD YES
[2019-12-04 01:19] LABS: BAND#(MANUAL) 0.84 x10^3/uL; BANDS%(MANUAL) 4 % (0-7); LYMPH#(MANUAL) 1.88 x10^3/uL (1-3.4); LYMPHS% (MANUAL) 9 % (22-44); MONOS#(MANUAL) 1.25 x10^3/uL (0.3-2.7); MONOS% (MANUAL) 6 % (2-9); SEG#(MANUAL) 16.93 x10^3/uL (1.8-6.8); SEGS% (MANUAL) 81 % (42-75)
[2019-12-04 01:20] LABS: <PLATELET ESTIMATE> ADEQUATE; <PLT MORPHOLOGY> NORMAL PLT MORPH; <RBC MORPHOLOGY> NORMAL
[2019-12-04] MEDS: methylPREDNISolone SOD SUCC 125 MG/2 ML IVPush SCH ×3 (01:52→17:19)
[2019-12-04] MEDS ORDERED: KETOROLAC 30 MG/1 ML IV PRN (02:00)
[2019-12-04] MEDS ORDERED: POLYETHYLENE GLYCOL 17 GM PACKET PO PRN (02:00)
[2019-12-04] MEDS ORDERED: IBUPROFEN 600 MG TABLET PO PRN (02:00)
[2019-12-04] MEDS ORDERED: MELATONIN 5 MG TABLET PO PRN (02:00)
[2019-12-04] MEDS ORDERED: ONDANSETRON 2MG/ML, 2ML IVPush PRN (02:00)
[2019-12-04] MEDS ORDERED: ALBUTEROL/IPRATROPIUM 2.5MG/0.5MG, 3 ML NPPB SCH (02:00)
[2019-12-04] MEDS ORDERED: morphine SULFATE 10 MG/ML, 1ML IVPush PRN (02:00)
[2019-12-04] MEDS ORDERED: ACETAMINOPHEN 325 MG TABLET PO PRN (02:00)
[2019-12-04] MEDS ORDERED: ENALAPRILAT 1.25 MG/ML, 2ML IVPush PRN (02:00)
[2019-12-04] MEDS ORDERED: LABETALOL 5MG/ML, 20ML IVPush PRN (02:00)
[2019-12-04] MEDS ORDERED: BISACODYL 10 MG SUPP PR PRN (02:00)
[2019-12-04] MEDS ORDERED: METOCLOPRAMIDE 5 MG/ML, 2ML IVPush PRN (02:00)
[2019-12-04] MEDS ORDERED: ONDANSETRON ODT 4 MG PO PRN (02:00)
[2019-12-04] MEDS ORDERED: ALBUTEROL HFA 90 MCG/SPRAY INH PRN (02:00)
[2019-12-04] MEDS ORDERED: DOXYCYCLINE 100 MG in DEXTROSE 5% 250 ML IV SCH ×2 (02:00)
[2019-12-04] MEDS ORDERED: DOCUSATE 100 MG CAPSULE PO PRN (02:00)
[2019-12-04] MEDS ORDERED: ENOXAPARIN 40 MG/0.4 ML ONE (02:01)
[2019-12-04] MEDS ORDERED: GUAIFENESIN 200 MG TABLET ONE (02:01)
[2019-12-04] MEDS: GUAIFENESIN 200 MG TABLET PO SCH ×5 (02:12→19:46)
[2019-12-04] MEDS: ENOXAPARIN 40 MG/0.4 ML SQ SCH (02:12)
[2019-12-04 02:40] LABS: TROPONIN I 0.215 ng/mL (0.000-0.045)
[2019-12-04 02:55] VITALS: BP 117/55
[2019-12-04] MEDS: LACTATED RINGERS 1,000 ML IV SCH ×2 (03:11→12:38)
[2019-12-04] MEDS: ALBUTEROL-IPRATROPIUM MDI INH INH SCH ×6 (03:30→23:30)
[2019-12-04 06:27] LABS: TROPONIN I 0.199 ng/mL (0.000-0.045)
[2019-12-04] MEDS ORDERED: ALBUTEROL-IPRATROPIUM MDI INH INH SCH (07:00)
[2019-12-04 07:18] VITALS: BP 95/52
[2019-12-04] MEDS: DIVALPROEX 500 MG TAB.ER.24H PO SCH (08:38)
[2019-12-04] MEDS: NICOTINE 14MG/24 HR PATCH.TD24 TD SCH (08:38)
[2019-12-04] MEDS: CEFEPIME 1 GM in DEXTROSE 5% 50 ML IV SCH ×2 (08:47→17:06)
[2019-12-04 12:27] VITALS: BP 137/80
[2019-12-04] MEDS: DOXYCYCLINE 100 MG in DEXTROSE 5% 250 ML IV SCH (12:37)
[2019-12-04] MEDS: FLUTICASONE/VILANTEROL 200-25MCG/INH INH SCH (12:39)
[2019-12-04 19:38] VITALS: BP 145/80
[2019-12-05] MEDS: LACTATED RINGERS 1,000 ML IV SCH
[2019-12-05] MEDS: CEFEPIME 1 GM in DEXTROSE 5% 50 ML IV SCH ×2 (00:09→09:05)
[2019-12-05] MEDS: DOXYCYCLINE 100 MG in DEXTROSE 5% 250 ML IV SCH (00:09)
[2019-12-05 01:18] VITALS: BP 148/77
[2019-12-05] MEDS: methylPREDNISolone SOD SUCC 125 MG/2 ML IVPush SCH ×2 (01:27→09:05)
[2019-12-05] MEDS: ENOXAPARIN 40 MG/0.4 ML SQ SCH (01:27)
[2019-12-05] MEDS: ALBUTEROL-IPRATROPIUM MDI INH INH SCH ×2 (02:50→09:05)
[2019-12-05] MEDS: NICOTINE 14MG/24 HR PATCH.TD24 TD SCH (05:11)
[2019-12-05] MEDS: GUAIFENESIN 200 MG TABLET PO SCH ×2 (05:11→09:06)
[2019-12-05 05:50] LABS: BASOPHILS % (AUTO) 1 % (0-1); EOSINOPHILS % (AUTO) 0 % (1-7); LYMPHOCYTES % (AUTO) 2 % (22-44); MEAN CORPUSCULAR HEMOGLOBIN 30.1 pg (27.5-34.5); MEAN PLATELET VOLUME 8.3 fL (7.4-10.4); MONOCYTES % (AUTO) 3 % (2-9); NEUTROPHILS % (AUTO) 94 % (42-75); PLATELET COUNT 186 x10^3/uL (130-400); RED CELL DISTRIBUTION WIDTH 14.5 % (9.4-14.8)
[2019-12-05 05:59] LABS: CHLORIDE 99 mmol/L (98-107)
[2019-12-05 06:11] LABS: ALANINE AMINOTRANSFERASE 41 U/L (12-78); ALBUMIN 3.1 g/dL (3.4-5.0); ALKALINE PHOSPHATASE 55 U/L (45-117); ANION GAP 5 mmol/L (5-15); BILIRUBIN,TOTAL 0.8 mg/dL (0.2-1.0); CALCIUM 8.9 mg/dL (8.5-10.1); CREATININE 0.83 mg/dL (0.7-1.3); TOTAL PROTEIN 5.9 g/dL (6.4-8.2)
[2019-12-05 06:49] LABS: MD SCAN
[2019-12-05 08:00] VITALS: BP 147/78
[2019-12-05] MEDS: FLUTICASONE/VILANTEROL 200-25MCG/INH INH SCH (09:05)
[2019-12-05] MEDS: DIVALPROEX 500 MG TAB.ER.24H PO SCH (09:06)
[2019-12-05] MEDS ORDERED: MAALOX/HYOSCYAMINE/LIDOCAINE 45 ML BTL PO ONE (10:30)
[2019-12-05] MEDS ORDERED: predniSONE 50MG TABLET PO SCH (11:00)
[2019-12-05] MEDS ORDERED: ALBUTEROL-IPRATROPIUM MDI INH INH SCH (11:00)
[2019-12-06] MEDS ORDERED: LACTATED RINGERS 1,000 ML IV SCH (02:00)
== END 2019-12-05 11:05 | disposition left against medical advice (07) | DRG 871 ==
LOC: ED 12-04 00:55 → EDIP 12-04 01:40 → 4EST 12-04 02:39
PROVIDERS: ADMIT Family Medicine; ATTEND Family Medicine
DX: A41.9 Sepsis, unspecified organism (principal); J18.9 Pneumonia, unspecified organism; J96.01 Acute respiratory failure with hypoxia; J44.1 Chronic obstructive pulmonary disease with (acute) exacerbation; E87.3 Alkalosis; F31.9 Bipolar disorder, unspecified; Z59.0 Homelessness; Z88.8 Allergy status to other drugs, medicaments and biological substances; Z88.5 Allergy status to narcotic agent; Z83.3 Family history of diabetes mellitus; Z82.49 Family history of ischemic heart disease and other diseases of the circulatory system; Z79.899 Other long term (current) drug therapy; Z91.19 Patient's noncompliance with other medical treatment and regimen
CPT/HCPCS: 36415; 36600; 71045; 80053; 82803; 83036; 83605; 84484; 85025; 86592; 87040; 87806; 93005; 94640; 99291; G0378; J0692; J0696; J1650; J7060; G0475; J2930; J7120

== ENCOUNTER 2020-03-08 03:06 | Emergency (ER) | payer MEDICAID ==
[~2020-03-08] VITALS: Ht 177.8 cm; Wt 82.0 kg
[~2020-03-08 03:06] MED LIST changes: +DIVA500T4 PO; -RISP2TAB3 PO; +RISP2TAB80 PO
--- NOTE | 2020-03-08 03:21 | NUR ---
EDIN FROM [facility] WITH CC OF SOB AND "MY CHEST FEELS TIGHT". PER EMS REPORT PT HAD WHEEZING. EMS GAVE DUONEB AND 125 MG SOLUMEDROL AND PLACED PIV 20 GAUGE RIGHT FOREARM. PT STATES HE WAS DISCHARGED FROM [facility] YESTERDAY AM AFTER BEING THERE FOR 3 WEEKS FOR SI. PT IS DENYING SI AT THIS TIME STATING HE IS ON MEDICATIONS AND IS FEELING BETTER. PT REPORTS NEW LOSS OF TASTE X 1 WEEK. PT STATES HE HAS NOT SMOKED IN THE LAST 3 WEEKS BUT WOULD LIKE A NICOTINE PATCH. PT CONNECTED TO DYNAMIC BALANCER AND CONTINUOUS PULSE OX. PT GIVEN WARM BLANKET
[2020-03-08] MEDS ORDERED: ALBUTEROL/IPRATROPIUM 2.5MG/0.5MG, 3 ML NPPB SCH (03:30)
[2020-03-08] MEDS ORDERED: SODIUM CHLORIDE 0.9% 1,000ML IVBOLUS ONE (03:30)
[2020-03-08] MEDS ORDERED: MAGNESIUM SULFATE PMX 2GM/50ML 50 ML IV ONE (03:30)
[2020-03-08] MEDS ORDERED: ALBUTEROL/IPRATROPIUM 2.5MG/0.5MG, 3 ML NPPB PRN (03:30)
[2020-03-08] MEDS ORDERED: NICOTINE 14MG/24 HR PATCH.TD24 TD ONE (03:30)
[2020-03-08 03:58] LABS: BASOPHILS % (AUTO) 0 % (0-1); EOSINOPHILS % (AUTO) 0 % (1-7); LYMPHOCYTES % (AUTO) 20 % (22-44); MD NO; MEAN CORPUSCULAR HEMOGLOBIN 32.1 pg (27.5-34.5); MEAN CORPUSCULAR HGB CONC 34.1 g/dL (33.2-36.2); MEAN PLATELET VOLUME 7.8 fL (7.4-10.4); MONOCYTES % (AUTO) 11 % (2-9); NEUTROPHILS % (AUTO) 69 % (42-75); PLATELET COUNT 193 x10^3/uL (130-400); RED BLOOD COUNT 4.43 x10^6/uL (4.38-5.82); RED CELL DISTRIBUTION WIDTH 14.4 % (9.4-14.8)
[2020-03-08 04:00] LABS: INTERNATIONAL NORMALIZED RATIO 1.16 (0.93-1.1); PROTHROMBIN TIME 12.3 Seconds (9.6-11.5)
[2020-03-08] MEDS ORDERED: NICOTINE 14MG/24 HR PATCH.TD24 ONE (04:01)
[2020-03-08 04:02] LABS: ALANINE AMINOTRANSFERASE 13 U/L (12-78); ALBUMIN 3.3 g/dL (3.4-5.0); CALCIUM 7.7 mg/dL (8.5-10.1); CHLORIDE 109 mmol/L (98-107); CREATININE 0.83 mg/dL (0.7-1.3)
[2020-03-08] MEDS ORDERED: ALBUTEROL/IPRATROPIUM 2.5MG/0.5MG, 3 ML ONE (04:02)
[2020-03-08] MEDS ORDERED: MAGNESIUM SULFATE PMX 2GM/50ML 50 ML ONE (04:02)
[2020-03-08 04:06] LABS: ALKALINE PHOSPHATASE 48 U/L (45-117); BILIRUBIN,TOTAL 0.5 mg/dL (0.2-1.0); TOTAL PROTEIN 5.7 g/dL (6.4-8.2)
[2020-03-08 04:12] LABS: ANION GAP 4 mmol/L (5-15)
--- NOTE | 2020-03-08 04:43 | NUR ---
PT TO IMAGING
[2020-03-08 04:44] LABS: TROPONIN I 0.171 ng/mL (0.000-0.045)
[2020-03-08] MEDS ORDERED: OMNIPAQUE 350 MG/ML, 75ML BOTTLE ONE (05:04)
--- NOTE | 2020-03-08 05:32 | NUR ---
PT RESTING IN [facility], NO NEEDS AT THIS TIME.
[2020-03-08 05:48] VITALS: BP 110/45
== END 2020-03-08 06:10 | disposition home or self-care (01) ==
LOC: ED 03:55
DX: J44.1 Chronic obstructive pulmonary disease with (acute) exacerbation (principal); R77.8 Other specified abnormalities of plasma proteins; E11.9 Type 2 diabetes mellitus without complications; I11.9 Hypertensive heart disease without heart failure; I48.91 Unspecified atrial fibrillation; F17.210 Nicotine dependence, cigarettes, uncomplicated; Z72.9 Problem related to lifestyle, unspecified; Z86.718 Personal history of other venous thrombosis and embolism; Z59.0 Homelessness
CPT/HCPCS: 36415; 71045; 71275; 80053; 83880; 84484; 85025; 85610; 85730; 87040; 93005; 94640; 96365; 96366; 99285; 99406; J3475; J7030; Q9967

== ENCOUNTER 2020-03-23 01:38 | Emergency (ER) | payer MEDICAID ==
[~2020-03-23] VITALS: Ht 177.8 cm; Wt 75.0 kg
[2020-03-23] MEDS ORDERED: ALBUTEROL/IPRATROPIUM 2.5MG/0.5MG, 3 ML ONE (01:49)
[2020-03-23] MEDS ORDERED: ALBUTEROL/IPRATROPIUM 2.5MG/0.5MG, 3 ML NPPB ONE (02:00)
[2020-03-23] MEDS ORDERED: NICOTINE 7 MG/24 HR PATCH.TD24 TD SCH (02:00)
--- NOTE | 2020-03-23 02:03 | NUR ---
Post tx, good aeration. O2 down to 2L will monitor and continue to wean. Requested nicotine patch from pharmacy.
[2020-03-23 02:07] LABS: BASOPHILS % (AUTO) 0 % (0-1); EOSINOPHILS % (AUTO) 0 % (1-7); LYMPHOCYTES % (AUTO) 32 % (22-44); MEAN CORPUSCULAR HEMOGLOBIN 32.1 pg (27.5-34.5); MEAN CORPUSCULAR HGB CONC 34.4 g/dL (33.2-36.2); MONOCYTES % (AUTO) 10 % (2-9); NEUTROPHILS % (AUTO) 58 % (42-75); PLATELET COUNT 122 x10^3/uL (130-400)
[2020-03-23 02:09] LABS: MD NO
--- NOTE | 2020-03-23 02:09 | NUR ---
o2 down to 2l sats steady at 98%, RR 18. Weaned down to 1L, will reassess.
--- NOTE | 2020-03-23 02:14 | NUR ---
o2 off, will continue to monitor.
[2020-03-23 02:19] LABS: ALANINE AMINOTRANSFERASE 16 U/L (12-78); ALBUMIN 2.9 g/dL (3.4-5.0); ANION GAP 2 mmol/L (5-15); CALCIUM 8.5 mg/dL (8.5-10.1); CHLORIDE 105 mmol/L (98-107); CREATININE 0.78 mg/dL (0.7-1.3)
[2020-03-23 02:21] LABS: ALKALINE PHOSPHATASE 64 U/L (45-117); BILIRUBIN,TOTAL 0.3 mg/dL (0.2-1.0)
[2020-03-23] MEDS ORDERED: NICOTINE 7 MG/24 HR PATCH.TD24 ONE (02:22)
--- NOTE | 2020-03-23 02:27 | NUR ---
Millie dill in EDM - 03/23/20 at 0236 by [email or web address] EKG done to provider. Pt now states "freddy been thinking the past 3 days about killing myself", when asked if pt has plan he states "to get some heroin and overdose or cut my wrists".
--- NOTE | 2020-03-23 02:39 | NUR ---
Pt in NAD, RR equal and unlabored. Has remained with 94-95%RA sats for past 45 min. He denies any SI/HI.
--- NOTE | 2020-03-23 03:02 | NUR ---
Pt dc stable, with rx, instruct and cab voucher. Pt verbalizes understanding of instruct and f/u. To return to ER if worse or concerns.
[2020-03-23 03:03] VITALS: BP 145/89
--- NOTE | 2020-03-23 03:05 | NUR ---
Wrist band removed.
== END 2020-03-23 03:16 ==
LOC: ED 03:00
DX: U07.1 COVID-19 (principal); J44.1 Chronic obstructive pulmonary disease with (acute) exacerbation; J06.9 Acute upper respiratory infection, unspecified; I45.10 Unspecified right bundle-branch block; I10 Essential (primary) hypertension; E11.9 Type 2 diabetes mellitus without complications
CPT/HCPCS: 36415; 71045; 80053; 85025; 93005; 94640; 99285

== ENCOUNTER 2020-04-18 11:50 | Inpatient (IN) | payer MEDICAID ==
[~2020-04-18] VITALS: Ht 177.8 cm; Wt 78.0 kg
[2020-04-18] MEDS ORDERED: BISACODYL 10 MG SUPP PR PRN (12:30)
[2020-04-18] MEDS ORDERED: DOCUSATE 100 MG CAPSULE PO PRN (12:30)
[2020-04-18] MEDS ORDERED: ONDANSETRON ODT 4 MG PO PRN (12:30)
[2020-04-18] MEDS ORDERED: POLYETHYLENE GLYCOL 17 GM PACKET PO PRN (12:30)
[2020-04-18] MEDS ORDERED: ACETAMINOPHEN 325 MG TABLET PO PRN (12:30)
[2020-04-18] MEDS ORDERED: BUPR75TA6 PO (12:41)
[2020-04-18] MEDS ORDERED: RISP1TAB90 PO (12:41)
[2020-04-18] MEDS ORDERED: APIX5TAB PO (12:41)
[2020-04-18] MEDS ORDERED: MIRT7.5T8 PO (12:42)
[2020-04-18] MEDS ORDERED: MINO100C61 PO (12:42)
[2020-04-18] MEDS ORDERED: PLEASE ENTER HEIGHT AND WEIGHT MC SCH (18:00)
[2020-04-18 18:12] VITALS: BP 107/68
[2020-04-18 19:42] VITALS: BP 119/79
[2020-04-18] MEDS: BUPROPION SR 100 MG TABLET PO SCH (20:12)
[2020-04-18] MEDS: MIRTAZAPINE 15 MG TABLET PO SCH (20:12)
[2020-04-18] MEDS: RISPERIDONE 1 MG TABLET PO SCH (20:12)
[2020-04-18] MEDS: MINOCYCLINE 100MG CAPSULE PO SCH (20:12)
[2020-04-18] MEDS: APIXABAN 5 MG TABLET PO SCH (20:12)
[2020-04-19 01:59] LABS: MICROSCOPIC NOT IND
[2020-04-19 05:35] LABS: BASOPHILS % (AUTO) 0 % (0-1); EOSINOPHILS % (AUTO) 1 % (1-7); LYMPHOCYTES % (AUTO) 33 % (22-44); MEAN CORPUSCULAR HEMOGLOBIN 31.3 pg (27.5-34.5); MEAN CORPUSCULAR HGB CONC 34.3 g/dL (33.2-36.2); MEAN PLATELET VOLUME 8.3 fL (7.4-10.4); MONOCYTES % (AUTO) 9 % (2-9); NEUTROPHILS % (AUTO) 57 % (42-75); PLATELET COUNT 205 x10^3/uL (130-400); RED BLOOD COUNT 5.34 x10^6/uL (4.38-5.82); RED CELL DISTRIBUTION WIDTH 13.4 % (9.4-14.8)
[2020-04-19 05:43] LABS: CHLORIDE 105 mmol/L (98-107)
[2020-04-19 05:46] LABS: MD NO
[2020-04-19 05:55] LABS: ALANINE AMINOTRANSFERASE 20 U/L (12-78); ALBUMIN 3.1 g/dL (3.4-5.0); ALKALINE PHOSPHATASE 73 U/L (45-117); ANION GAP 6 mmol/L (5-15); BILIRUBIN,TOTAL 0.5 mg/dL (0.2-1.0); CALCIUM 9.3 mg/dL (8.5-10.1); CHOL/HDL RATIO 4.8; CHOLESTEROL, TOTAL 163 mg/dL (140-239); CREATININE 0.95 mg/dL (0.7-1.3); HDL CHOL % 21 % (26-37); HDL CHOLESTEROL (DIRECT) 34 mg/dL (40-60); LDL CHOLESTEROL,CALCULATED 106 mg/dL (54-169); LDL/HDL RATIO 3.1 (0.5-3.0); TOTAL PROTEIN 6.2 g/dL (6.4-8.2); TRIGLYCERIDES 115 mg/dL (50-200); VLDL CHOLESTEROL 23 mg/dL (0-25)
[2020-04-19 07:33] VITALS: BP 102/63
[2020-04-19] MEDS: BUPROPION SR 100 MG TABLET PO SCH ×2 (09:15→20:59)
[2020-04-19] MEDS: DIVALPROEX 500 MG TAB.ER.24H PO SCH ×2 (09:16→11:07)
[2020-04-19] MEDS: APIXABAN 5 MG TABLET PO SCH ×2 (09:16→20:59)
[2020-04-19] MEDS: RISPERIDONE 1 MG TABLET PO SCH (09:16)
[2020-04-19] MEDS: NICOTINE 21 MG/24 HR PATCH.TD24 TD SCH (09:17)
[2020-04-19] MEDS: MINOCYCLINE 100MG CAPSULE PO SCH ×2 (10:24→20:59)
[2020-04-19 19:36] VITALS: BP 107/70
[2020-04-19] MEDS: MIRTAZAPINE 15 MG TABLET PO SCH (20:59)
[2020-04-19] MEDS: RISPERIDONE 2 MG TABLET PO SCH (20:59)
[2020-04-20 07:25] VITALS: BP 95/68
[2020-04-20] MEDS: NICOTINE 21 MG/24 HR PATCH.TD24 TD SCH (09:25)
[2020-04-20] MEDS: BUPROPION SR 100 MG TABLET PO SCH ×2 (09:25→20:19)
[2020-04-20] MEDS: APIXABAN 5 MG TABLET PO SCH ×2 (09:25→20:18)
[2020-04-20] MEDS: MINOCYCLINE 100MG CAPSULE PO SCH ×2 (09:26→20:18)
[2020-04-20] MEDS: DIVALPROEX 500 MG TAB.ER.24H PO SCH ×2 (09:26→12:55)
[2020-04-20] MEDS: RISPERIDONE 1 MG TABLET PO SCH (09:26)
[2020-04-20 19:29] VITALS: BP 118/76
[2020-04-20] MEDS: MIRTAZAPINE 15 MG TABLET PO SCH (20:18)
[2020-04-20] MEDS: RISPERIDONE 2 MG TABLET PO SCH (20:19)
[2020-04-21 08:05] VITALS: BP 111/75
[2020-04-21] MEDS: DIVALPROEX 500 MG TAB.ER.24H PO SCH ×2 (09:00→12:15)
[2020-04-21] MEDS: NICOTINE 21 MG/24 HR PATCH.TD24 TD SCH (09:01)
[2020-04-21] MEDS: MINOCYCLINE 100MG CAPSULE PO SCH ×2 (09:01→20:23)
[2020-04-21] MEDS: APIXABAN 5 MG TABLET PO SCH ×2 (09:01→20:23)
[2020-04-21] MEDS: RISPERIDONE 1 MG TABLET PO SCH (09:01)
[2020-04-21] MEDS: BUPROPION SR 100 MG TABLET PO SCH ×2 (09:01→20:23)
[2020-04-21 19:13] VITALS: BP 100/68
[2020-04-21] MEDS: TRAZODONE 50MG TABLET PO PRN (20:23)
[2020-04-21] MEDS: MIRTAZAPINE 15 MG TABLET PO SCH (20:23)
[2020-04-21] MEDS: RISPERIDONE 2 MG TABLET PO SCH (20:24)
[2020-04-22 07:42] VITALS: BP 97/66
[2020-04-22] MEDS: APIXABAN 5 MG TABLET PO SCH (08:59)
[2020-04-22] MEDS: BUPROPION SR 100 MG TABLET PO SCH ×2 (08:59→20:24)
[2020-04-22] MEDS: DIVALPROEX 500 MG TAB.ER.24H PO SCH ×2 (08:59→12:43)
[2020-04-22] MEDS: NICOTINE 21 MG/24 HR PATCH.TD24 TD SCH (09:00)
[2020-04-22] MEDS: RISPERIDONE 1 MG TABLET PO SCH (09:00)
[2020-04-22 19:18] VITALS: BP 123/79
[2020-04-22] MEDS: MIRTAZAPINE 15 MG TABLET PO SCH (20:24)
[2020-04-22] MEDS: RISPERIDONE 2 MG TABLET PO SCH (20:25)
[2020-04-22] MEDS: TRAZODONE 50MG TABLET PO PRN (22:04)
[2020-04-23 07:39] VITALS: BP 100/58
[2020-04-23] MEDS: BUPROPION SR 100 MG TABLET PO SCH ×2 (08:59→21:13)
[2020-04-23] MEDS: DIVALPROEX 500 MG TAB.ER.24H PO SCH ×2 (08:59→12:15)
[2020-04-23] MEDS: RISPERIDONE 1 MG TABLET PO SCH (08:59)
[2020-04-23] MEDS: NICOTINE 21 MG/24 HR PATCH.TD24 TD SCH (09:01)
[2020-04-23 19:30] VITALS: BP 121/74
[2020-04-23] MEDS: RISPERIDONE 2 MG TABLET PO SCH (21:13)
[2020-04-23] MEDS: TRAZODONE 50MG TABLET PO PRN (21:13)
[2020-04-23] MEDS: MIRTAZAPINE 15 MG TABLET PO SCH (21:14)
[2020-04-24 07:28] VITALS: BP 106/71
[2020-04-24] MEDS: RISPERIDONE 1 MG TABLET PO SCH (08:50)
[2020-04-24] MEDS: BUPROPION SR 100 MG TABLET PO SCH ×2 (08:50→20:26)
[2020-04-24] MEDS: DIVALPROEX 500 MG TAB.ER.24H PO SCH ×2 (08:50→12:33)
[2020-04-24] MEDS: NICOTINE 21 MG/24 HR PATCH.TD24 TD SCH (08:51)
[2020-04-24] MEDS ORDERED: RISP2TAB80 PO (16:02)
[2020-04-24] MEDS ORDERED: TRAZ50TA66 PO (16:02)
[2020-04-24] MEDS ORDERED: BUPR-173 PO (16:02)
[2020-04-24] MEDS ORDERED: RISP1TAB90 PO (16:02)
[2020-04-24] MEDS ORDERED: DIVA500T4 PO (16:02)
[2020-04-24] MEDS ORDERED: MIRT-34 PO (16:02)
[2020-04-24] MEDS ORDERED: NICO-587 TD (16:02)
[2020-04-24 19:18] VITALS: BP 117/74
[2020-04-24] MEDS: MIRTAZAPINE 15 MG TABLET PO SCH (20:26)
[2020-04-24] MEDS: TRAZODONE 50MG TABLET PO PRN (20:26)
[2020-04-24] MEDS: RISPERIDONE 2 MG TABLET PO SCH (20:26)
[2020-04-25 07:29] VITALS: BP 119/73
[2020-04-25] MEDS: NICOTINE 21 MG/24 HR PATCH.TD24 TD SCH (07:56)
[2020-04-25] MEDS: BUPROPION SR 100 MG TABLET PO SCH (07:57)
[2020-04-25] MEDS: RISPERIDONE 1 MG TABLET PO SCH (07:57)
[2020-04-25] MEDS: DIVALPROEX 500 MG TAB.ER.24H PO SCH (07:57)
== END 2020-04-25 08:40 | disposition home or self-care (01) | DRG 885 ==
LOC: 3E 17:42
PROVIDERS: ADMIT Psychiatry & Neurology Psychosomatic Medicine; ATTEND Psychiatry & Neurology Psychosomatic Medicine
DX: F25.0 Schizoaffective disorder, bipolar type (principal); F17.210 Nicotine dependence, cigarettes, uncomplicated; G47.00 Insomnia, unspecified; J44.9 Chronic obstructive pulmonary disease, unspecified; L73.9 Follicular disorder, unspecified; Z59.0 Homelessness; Z79.01 Long term (current) use of anticoagulants; Z79.899 Other long term (current) drug therapy; Z86.718 Personal history of other venous thrombosis and embolism; Z90.2 Acquired absence of lung [part of]; Z91.5 Personal history of self-harm; Z88.1 Allergy status to other antibiotic agents; Z79.82 Long term (current) use of aspirin
CPT/HCPCS: 36415; 80053; 80061; 81003; 85025; 93005

== ENCOUNTER 2020-05-22 13:12 | Emergency (ER) | payer MEDICAID ==
[~2020-05-22] VITALS: Ht 177.8 cm; Wt 88.9 kg
[~2020-05-22 13:12] MED LIST changes: +APIX5TAB PO; +BUPR-173 PO; +BUPR75TA6 PO; +MINO100C61 PO; +MIRT-34 PO; +MIRT7.5T8 PO; +NICO-587 TD; +RISP1TAB90 PO; +TRAZ50TA66 PO
--- NOTE | 2020-05-22 13:43 | NUR ---
PT STATING HE FEELS MANIC AND SUICIDAL. PT STATES HE HAS BEEN TAKING HIS MEDS, BUT HE FEELS THAT THE FEELINGS ARE INCREASING. PTS BELONGINGS PLACED IN BAGS AND PLACED IN THE LOCKER. ROOM SECURED. STAFF RIGHT OUTSIDE THE ROOM.
--- NOTE | 2020-05-22 13:45 | NUR ---
PSYCH DATA COLLECTOR BEDSIDE
[2020-05-22] MEDS ORDERED: NICOTINE 21 MG/24 HR PATCH.TD24 TD ONE (14:00)
[2020-05-22] MEDS ORDERED: NICOTINE 21 MG/24 HR PATCH.TD24 ONE (14:07)
[2020-05-22 14:41] LABS: BASOPHILS % (AUTO) 0 % (0-1); EOSINOPHILS % (AUTO) 0 % (1-7); LYMPHOCYTES % (AUTO) 6 % (22-44); MEAN CORPUSCULAR HEMOGLOBIN 30.4 pg (27.5-34.5); MEAN CORPUSCULAR HGB CONC 33.8 g/dL (33.2-36.2); MEAN PLATELET VOLUME 7.9 fL (7.4-10.4); MONOCYTES % (AUTO) 2 % (2-9); NEUTROPHILS % (AUTO) 91 % (42-75); PLATELET COUNT 206 x10^3/uL (130-400); RED BLOOD COUNT 5.24 x10^6/uL (4.38-5.82); RED CELL DISTRIBUTION WIDTH 13.6 % (9.4-14.8)
[2020-05-22 14:49] LABS: ALANINE AMINOTRANSFERASE 22 U/L (12-78); ANION GAP 5 mmol/L (5-15); CALCIUM 8.4 mg/dL (8.5-10.1); CHLORIDE 104 mmol/L (98-107)
[2020-05-22 14:50] LABS: SALICYLATE LEVEL < 1.7 mg/dL (2.8-20.0)
[2020-05-22 14:52] LABS: AMPHETAMINE SCREEN, URINE Negative (Negative); BARBITURATE SCREEN, URINE Negative (Negative); BENZODIAZEPINE SCREEN, URINE Negative (Negative); CANNABINOID SCREEN, URINE Negative (Negative); COCAINE SCREEN, URINE Negative (Negative); METHADONE SCREEN, URINE Negative (Negative); OPIATE SCREEN, URINE Negative (Negative)
[2020-05-22 14:53] LABS: ALKALINE PHOSPHATASE 67 U/L (45-117); BILIRUBIN,TOTAL 0.5 mg/dL (0.2-1.0); TOTAL PROTEIN 6.2 g/dL (6.4-8.2)
[2020-05-22 15:09] LABS: MD SCAN
--- NOTE | 2020-05-22 15:10 | NUR ---
covid swab obtained per guidelines and walked to lab
[2020-05-22 15:36] VITALS: BP 113/67
--- NOTE | 2020-05-22 17:35 | NUR ---
REPORT GIVEN TO LISETTE BERNARDO
[2020-05-22] MEDS ORDERED: MIRTAZAPINE 15 MG TABLET PO SCH (21:00)
[2020-05-22] MEDS ORDERED: BUPROPION SR 100 MG TABLET PO SCH (21:00)
[2020-05-22] MEDS ORDERED: DIVALPROEX 500 MG TAB.ER.24H PO SCH (21:00)
[2020-05-22] MEDS ORDERED: RISPERIDONE 2 MG TABLET PO SCH (21:00)
== END 2020-05-22 22:56 ==
LOC: ED 14:04
DX: R45.851 Suicidal ideations (principal); Z20.822 Contact with and (suspected) exposure to COVID-19; I10 Essential (primary) hypertension; E11.9 Type 2 diabetes mellitus without complications; J44.9 Chronic obstructive pulmonary disease, unspecified; R00.0 Tachycardia, unspecified
CPT/HCPCS: 36415; 80053; 80143; 80164; 80179; 80307; 80320; 85025; 87426; 99285; G0480

== ENCOUNTER 2020-06-22 15:57 | Emergency (ER) | payer MEDICAID ==
[~2020-06-22] VITALS: Ht 177.8 cm; Wt 79.5 kg
[~2020-06-22 15:57] MED LIST changes: +HYDR-826 PO; +OLAN10TA9 PO; +OLAN5TAB9 PO; +SERT50TA28 PO
--- NOTE | 2020-06-22 16:16 | NUR ---
ASSUMED CARE OF PT
--- NOTE | 2020-06-22 16:28 | NUR ---
UNABLE TO OBTAIN MED REC, PT STATES HE IS NOT TAKING ANY MEDICATIONS THAT WERE PRESCRIBED FOR HIM.
[2020-06-22] MEDS ORDERED: DICYCLOMINE 10 MG CAPSULE PO ONE ×2 (16:30→17:00)
[2020-06-22] MEDS ORDERED: DICYCLOMINE 20 MG TABLET ONE (16:32)
[2020-06-22 16:40] LABS: BASOPHILS % (AUTO) 1 % (0-1); EOSINOPHILS % (AUTO) 1 % (1-7); LYMPHOCYTES % (AUTO) 15 % (22-44); MEAN CORPUSCULAR HEMOGLOBIN 29.6 pg (27.5-34.5); MEAN CORPUSCULAR HGB CONC 33.7 g/dL (33.2-36.2); MEAN PLATELET VOLUME 8.1 fL (7.4-10.4); MONOCYTES % (AUTO) 8 % (2-9); NEUTROPHILS % (AUTO) 76 % (42-75); PLATELET COUNT 257 x10^3/uL (130-400); RED BLOOD COUNT 4.91 x10^6/uL (4.38-5.82)
[2020-06-22 16:41] LABS: MD NO
[2020-06-22 16:51] LABS: ALANINE AMINOTRANSFERASE 22 U/L (12-78); ALBUMIN 3.2 g/dL (3.4-5.0); ANION GAP 4 mmol/L (5-15); CALCIUM 8.9 mg/dL (8.5-10.1); CHLORIDE 109 mmol/L (98-107); CREATININE 0.92 mg/dL (0.7-1.3)
[2020-06-22 16:53] LABS: ALKALINE PHOSPHATASE 73 U/L (45-117); BILIRUBIN,TOTAL 0.6 mg/dL (0.2-1.0)
[2020-06-22] MEDS ORDERED: DICYCLOMINE 20 MG TABLET PO ONE (17:00)
[2020-06-22 17:36] VITALS: BP 99/43
== END 2020-06-22 18:23 | disposition home or self-care (01) ==
LOC: ED 18:01
DX: K92.1 Melena (principal); R10.84 Generalized abdominal pain; J43.9 Emphysema, unspecified
CPT/HCPCS: 36415; 80053; 85025; 99283

== ENCOUNTER 2020-07-11 23:27 | Emergency (ER) | payer MEDICAID ==
[~2020-07-11] VITALS: Ht 180.3 cm; Wt 72.0 kg
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
[2020-07-11] MEDS ORDERED: KETOROLAC 30 MG/1 ML ONE (23:56)
[2020-07-12] MEDS ORDERED: ASPIRIN 81 MG TABLET CHEW PO ONE
[2020-07-12] MEDS ORDERED: KETOROLAC 30 MG/1 ML IM ONE
--- NOTE | 2020-07-12 00:02 | NUR ---
PER DR. YOUNG HOLD ASPIRIN SINCE EMS GAVE 324 MG AND OKAY TO GIVE TORADOL IV PUSH INSTEAD OF IM. VERBAL ORDERS REPEATED.
[2020-07-12 00:24] LABS: BASOPHILS % (AUTO) 0 % (0-1); EOSINOPHILS % (AUTO) 1 % (1-7); LYMPHOCYTES % (AUTO) 18 % (22-44); MEAN CORPUSCULAR HGB CONC 34.4 g/dL (33.2-36.2); MEAN PLATELET VOLUME 8.4 fL (7.4-10.4); MONOCYTES % (AUTO) 10 % (2-9); NEUTROPHILS % (AUTO) 72 % (42-75); PLATELET COUNT 238 x10^3/uL (130-400); RED BLOOD COUNT 5.18 x10^6/uL (4.38-5.82); RED CELL DISTRIBUTION WIDTH 15.3 % (9.4-14.8)
[2020-07-12 00:27] LABS: MD NO
[2020-07-12] MEDS ORDERED: NICOTINE 14MG/24 HR PATCH.TD24 TD ONE (00:30)
[2020-07-12 00:35] LABS: ALBUMIN 3.5 g/dL (3.4-5.0); ANION GAP 4 mmol/L (5-15); CALCIUM 8.7 mg/dL (8.5-10.1); CHLORIDE 105 mmol/L (98-107); CREATININE 0.96 mg/dL (0.7-1.3)
[2020-07-12 00:39] LABS: TROPONIN I 0.059 ng/mL (0.000-0.045)
[2020-07-12] MEDS ORDERED: NICOTINE 14MG/24 HR PATCH.TD24 ONE (00:58)
--- NOTE | 2020-07-12 01:03 | NUR ---
PT STATES PAIN IS NOW 7, DOWN FROM 9. ALSO GIVEN WARM BLANKET.
[2020-07-12 01:54] VITALS: BP 143/77
== END 2020-07-12 02:04 | disposition home or self-care (01) ==
LOC: ED 23:51
DX: R07.2 Precordial pain (principal); R07.1 Chest pain on breathing; R00.0 Tachycardia, unspecified; I10 Essential (primary) hypertension; E11.9 Type 2 diabetes mellitus without complications; J44.9 Chronic obstructive pulmonary disease, unspecified; F17.200 Nicotine dependence, unspecified, uncomplicated
CPT/HCPCS: 36415; 71045; 80048; 82040; 84484; 85025; 93005; 96372; 99285; J1885

== ENCOUNTER 2020-07-13 01:05 | Emergency (ER) | payer MEDICAID ==
[~2020-07-13] VITALS: Ht 180.3 cm; Wt 79.8 kg
--- NOTE | 2020-07-13 01:50 | NUR ---
PT C/O BILAT KNEE AND BILAT HAND PAIN S/P MGLF APPROX 7.5 HOURS AGO. ABRASIONS NOTED TO BILAT KNEES. PT AMBULATED TO ROOM 4 WITH STEADY GAIT
--- NOTE | 2020-07-13 02:18 | NUR ---
PT TO XRAY
[2020-07-13] MEDS ORDERED: BACITRACIN ZINC OINT 500U/GM, 0.9 GM ONE (02:35)
[2020-07-13] MEDS ORDERED: NEOSPORIN OINT. PKT 1 PACKET ONE (03:27)
[2020-07-13 04:35] VITALS: BP 124/74
== END 2020-07-13 04:36 | disposition home or self-care (01) ==
LOC: ED 01:31
DX: S60.512A Abrasion of left hand, initial encounter (principal); S60.511A Abrasion of right hand, initial encounter; S80.212A Abrasion, left knee, initial encounter; S80.211A Abrasion, right knee, initial encounter; F17.210 Nicotine dependence, cigarettes, uncomplicated; W01.0XXA Fall on same level from slipping, tripping and stumbling without subsequent striking against object, initial encounter; Y93.89 Activity, other specified; Y92.410 Unspecified street and highway as the place of occurrence of the external cause; Y99.8 Other external cause status
CPT/HCPCS: 99284

== ENCOUNTER 2020-07-17 19:26 | Emergency (ER) | payer MEDICAID ==
[~2020-07-17] VITALS: Ht 180.3 cm; Wt 82.0 kg
[2020-07-17 19:28] VITALS: BP 147/72
[2020-07-17 19:50] LABS: BASOPHILS % (AUTO) 1 % (0-1); EOSINOPHILS % (AUTO) 1 % (1-7); LYMPHOCYTES % (AUTO) 7 % (22-44); MEAN CORPUSCULAR HEMOGLOBIN 29.4 pg (27.5-34.5); MEAN CORPUSCULAR HGB CONC 33.4 g/dL (33.2-36.2); MEAN PLATELET VOLUME 7.9 fL (7.4-10.4); MONOCYTES % (AUTO) 5 % (2-9); NEUTROPHILS % (AUTO) 87 % (42-75); PLATELET COUNT 298 x10^3/uL (130-400); RED BLOOD COUNT 4.95 x10^6/uL (4.38-5.82)
[2020-07-17 19:52] LABS: MD NO
[2020-07-17 19:58] LABS: CHLORIDE 106 mmol/L (98-107)
[2020-07-17 19:59] LABS: ALBUMIN 3.7 g/dL (3.4-5.0); ANION GAP 4 mmol/L (5-15); CALCIUM 9.1 mg/dL (8.5-10.1); CREATININE 0.89 mg/dL (0.7-1.3)
--- NOTE | 2020-07-17 21:12 | NUR ---
CALLED TO IDANIA BLAIR @[phone]
--- NOTE | 2020-07-17 21:48 | NUR ---
NIL X 2
--- NOTE | 2020-07-17 22:01 | NUR ---
NIL X3
== END 2020-07-17 22:02 | disposition left against medical advice (07) ==
LOC: ED 19:56
DX: M25.562 Pain in left knee (principal)
CPT/HCPCS: 36415; 80048; 82040; 85025; 99284

== ENCOUNTER 2020-07-23 02:32 | Emergency (ER) | payer MEDICAID ==
[~2020-07-23] VITALS: Ht 180.3 cm; Wt 85.0 kg
--- NOTE | 2020-07-23 02:34 | NUR ---
patient arrives with a head injury that occurred yesterday at 3 pm. he was sitting on a park bench that broke and he hit his head. no signs of trama and no wounds. unsure if he lost conciousness. recalls next he went to [facility] via ambulance and they put him in waiting room for 3 hours and he then left. he then went to [facility] and then called 911 from skilled nursing to come here for head inury. [id number]
[2020-07-23 02:51] VITALS: BP 104/78
[2020-07-23] MEDS ORDERED: KETOROLAC 30 MG/1 ML ONE (02:56)
[2020-07-23] MEDS ORDERED: ONDANSETRON ODT 4 MG ONE (02:56)
[2020-07-23] MEDS ORDERED: ONDANSETRON ODT 4 MG PO ONE (03:00)
[2020-07-23] MEDS ORDERED: KETOROLAC 30 MG/1 ML IM ONE (03:00)
== END 2020-07-23 03:03 | disposition home or self-care (01) ==
LOC: ED 02:56
DX: S06.0X1A Concussion with loss of consciousness of 30 minutes or less, initial encounter (principal); I10 Essential (primary) hypertension; E11.9 Type 2 diabetes mellitus without complications; J44.9 Chronic obstructive pulmonary disease, unspecified; F17.210 Nicotine dependence, cigarettes, uncomplicated; W01.0XXA Fall on same level from slipping, tripping and stumbling without subsequent striking against object, initial encounter; Y93.89 Activity, other specified; Y92.830 Public park as the place of occurrence of the external cause; Y99.8 Other external cause status
CPT/HCPCS: 96372; 99283; 99406; J1885; Q0162

== ENCOUNTER 2020-07-26 00:06 | Emergency (ER) | payer MEDICAID ==
[~2020-07-26] VITALS: Ht 180.3 cm; Wt 79.8 kg
[~2020-07-26 00:06] MED LIST changes: +MIRT-14 PO; -MIRT-34 PO
--- NOTE | 2020-07-26 00:29 | NUR ---
pt brought in by EMS, pt has SI, pt stated he wants to buy rope from [employer] to hang himself or get some drugs to overdose on, pt placed on a legal hold by bhavesh BARTLETT doors down, pt in line of sight of camera
[2020-07-26] MEDS ORDERED: NICOTINE 21 MG/24 HR PATCH.TD24 TD ONE (00:30)
[2020-07-26 00:33] LABS: BASOPHILS % (AUTO) 1 % (0-1); EOSINOPHILS % (AUTO) 1 % (1-7); LYMPHOCYTES % (AUTO) 14 % (22-44); MEAN CORPUSCULAR HEMOGLOBIN 29.9 pg (27.5-34.5); MEAN PLATELET VOLUME 7.8 fL (7.4-10.4); MONOCYTES % (AUTO) 5 % (2-9); NEUTROPHILS % (AUTO) 79 % (42-75); PLATELET COUNT 338 x10^3/uL (130-400); RED BLOOD COUNT 4.91 x10^6/uL (4.38-5.82); RED CELL DISTRIBUTION WIDTH 14.9 % (9.4-14.8)
[2020-07-26 00:35] LABS: MD NO
[2020-07-26] MEDS ORDERED: NICOTINE 21 MG/24 HR PATCH.TD24 ONE (00:36)
--- NOTE | 2020-07-26 00:43 | NUR ---
pts belongings put into 2 separate belonging bags and locked in security locker, bags labeled, sitter at bedside
[2020-07-26 00:45] LABS: ALBUMIN 3.3 g/dL (3.4-5.0); ANION GAP 6 mmol/L (5-15); CALCIUM 8.4 mg/dL (8.5-10.1); CHLORIDE 107 mmol/L (98-107); CREATININE 1.02 mg/dL (0.7-1.3)
[2020-07-26 00:46] LABS: SALICYLATE LEVEL < 1.7 mg/dL (2.8-20.0)
[2020-07-26 00:46] LABS: AMPHETAMINE SCREEN, URINE Negative (Negative); BARBITURATE SCREEN, URINE Negative (Negative); BENZODIAZEPINE SCREEN, URINE Negative (Negative); CANNABINOID SCREEN, URINE Negative (Negative); COCAINE SCREEN, URINE Negative (Negative); METHADONE SCREEN, URINE Negative (Negative); OPIATE SCREEN, URINE Negative (Negative)
--- NOTE | 2020-07-26 01:06 | NUR ---
pt laying in bed, a/ox4, all needs in reach, call light in reach, NAD, sitter in line of sight
--- NOTE | 2020-07-26 02:53 | NUR ---
pt asleep in bed, all needs in reach, call light in reach, NAD, waiting for telepsych, sitter in line of sight
--- NOTE | 2020-07-26 03:06 | NUR ---
pt asleep in bed, all needs in reach, call light in reach, NAD, waiting for telepsych, sitter in line of sight
--- NOTE | 2020-07-26 04:28 | NUR ---
pt on telepsyche right now with psychiatrist
--- NOTE | 2020-07-26 04:47 | NUR ---
pt got off telepsych with psychiatrist, psychiatrist called this RN and stated that he felt the pt was malingering and was just jumping around from facility to facility, psychiatrist felt that pt does not meet criteria for involuntary admission and it is ok to discharge pt, this RN will inform ER MD of outcome
[2020-07-26 05:14] VITALS: BP 133/84
--- NOTE | 2020-07-26 05:15 | NUR ---
pt cleared by psychiatrist and cleared by , pt NAD, all vitals stable
== END 2020-07-26 05:22 | disposition home or self-care (01) ==
LOC: ED 00:30
DX: R45.851 Suicidal ideations (principal); Z72.9 Problem related to lifestyle, unspecified; F17.210 Nicotine dependence, cigarettes, uncomplicated; F32.9 Major depressive disorder, single episode, unspecified; J43.9 Emphysema, unspecified; I10 Essential (primary) hypertension
CPT/HCPCS: 36415; 80048; 80299; 80307; 80320; 80329; 82040; 85025; 99283; 99285; 99406; G0480